=== PATIENT | female | born 1935 | race Caucasian/White ===

== ENCOUNTER → 2018-11-03 | Outpatient (CLI) | payer MEDICARE | END | disposition home or self-care (01) | LOC: RAH 10:25 | PROVIDERS: ATTEND Internal Medicine | DX: N28.1 Cyst of kidney, acquired (principal); R11.0 Nausea | CPT/HCPCS: 76700 ==

== ENCOUNTER 2019-05-13 08:56 | Emergency (ER) | payer MEDICARE ==
[~2019-05-13] VITALS: Ht 165.1 cm; Wt 52.2 kg
[2019-05-13 09:30] LABS: BASOPHILS % (AUTO) 0.3 % (0.0-5.0); EOSINOPHILS % (AUTO) 0.1 % (0.0-8.0); HEMATOCRIT 43.7 % (36-48); LYMPHOCYTES % (AUTO) 10.7 % (21.0-51.0); MEAN CORPUSCULAR HEMOGLOBIN 33.5 pg (27.0-33.0); MEAN CORPUSCULAR HGB CONC 33.5 g/dL (32.0-36.0); MEAN CORPUSCULAR VOLUME 99.9 fL (79-99); NEUTROPHILS % (AUTO) 80.9 % (40.0-77.0); PLATELET COUNT (AUTO) 208 K/uL (130-400); RED BLOOD CELL COUNT(AUTO) 4.38 MIL/uL (4.00-5.50); WHITE BLOOD COUNT (AUTO) 15.4 K/uL (4.8-10.8)
[2019-05-13] MEDS ORDERED: DEXAMETHASONE SOD PHOSPHATE 10MG/ML 1ML VIAL ONE (09:32)
[2019-05-13 09:38] LABS: CREATININE 0.8 mg/dL (0.5-1.5)
[2019-05-13 09:43] LABS: BILIRUBIN,TOTAL 1.2 mg/dL (0.2-1.0); TOTAL PROTEIN, SERUM 8.1 g/dL (6.0-8.3)
[2019-05-13] MEDS ORDERED: VANCOMYCIN 1GM+NS 250ML 250 ML IV SCH (09:45)
[2019-05-13] MEDS ORDERED: VANCOMYCIN 1GM+NS 250ML 250 ML IV ONE (09:49)
== END 2019-05-13 12:54 | disposition home or self-care (01) ==
LOC: EDH 08:56
DX: L03.113 Cellulitis of right upper limb (principal); I10 Essential (primary) hypertension; E03.9 Hypothyroidism, unspecified; Z88.0 Allergy status to penicillin; Z88.6 Allergy status to analgesic agent; Z88.7 Allergy status to serum and vaccine; Z87.891 Personal history of nicotine dependence
CPT/HCPCS: 36415; 80053; 85025; 96365; 96366; 96375; 99285; J1100; J3370

== ENCOUNTER → 2020-05-08 | Outpatient (CLI) | payer MEDICARE | END | disposition home or self-care (01) | LOC: RAH 14:26 | PROVIDERS: ATTEND Nurse Practitioner Adult Health | DX: J43.8 Other emphysema (principal); M47.815 Spondylosis without myelopathy or radiculopathy, thoracolumbar region; M41.85 Other forms of scoliosis, thoracolumbar region | CPT/HCPCS: 71046 ==

== ENCOUNTER 2025-09-13 11:41 | Inpatient (IN) | payer MEDICARE ==
[~2025-09-13] VITALS: Ht 165.1 cm; Wt 54.4 kg
--- NOTE | 2025-09-13 12:46 | NUR ---
REPORT RECEIVED FROM BEN RN AND REAL ESTATE REPRESENTATIVE AT BEDSIDE. PATIENT CARE ASSUMED AT THIS TIME.
--- NOTE | 2025-09-13 12:58 | NUR ---
PATIENT TRANSPORTED TO CT BY [facility].
[2025-09-13 13:12] LABS: APPEARANCE,URINE CLEAR (CLEAR); GLUCOSE, URINE (UA) NEGATIVE (NEGATIVE); LEUKOCYTE ESTERASE ,URINE NEGATIVE Leu/uL (NEGATIVE); NITRATE,URINE NEGATIVE (NEGATIVE); OCCULT BLOOD,URINE NEGATIVE (NEGATIVE)
[2025-09-13 13:15] LABS: ADD UA MICROSCOPIC NO
--- NOTE | 2025-09-13 13:15 | NUR ---
PATIENT RETURNED FROM CT SCAN. 2 FAMILY MEMBERS AT BEDSIDE.
[2025-09-13] MEDS: LISINOPRIL 20 MG TABLET PO ONE (14:10)
--- NOTE | 2025-09-13 14:20 | HMCIMG ---
EXAM: CT LUMBAR SPINE WITHOUT INTRAVENOUS CONTRAST Technique: Helical computed tomography of the lumbar spine was performed with axial images and multiplanar reformations; radiation dose reduction techniques were applied consistent with uv-siy-rl-reasonably-achievable principles. Dose metrics: CTDIvol 13.30 mGy; DLP 451.70 mGy???cm. Comparison: None. Contrast: No intravenous contrast administered. Clinical Information: Back pain. Findings: Lumbar spine: Vertebral body heights are maintained without acute fracture or destructive osseous lesion; mild levoscoliosis is present; multilevel anterior osteophytes are noted; intervertebral disc spaces are reduced at multiple levels; posterior elements (facets, laminae, pedicles) are intact without malalignment; vacuum phenomenon is present at L2???3 and L3???4; diffuse disc bulges at L1???2, L2???3, L3???4, L4???5, and L5???S1 with severe bilateral neural foraminal stenosis at each level; no central canal stenosis is identified on computed tomography; multilevel facet joint arthropathy is present. Sacroiliac joints: Alignment is normal without erosions or ankylosis. Paraspinal soft tissues and retroperitoneum: Moderate aortic atherosclerotic calcifications; paraspinal muscles (psoas and erector spinae) are unremarkable. Bowel: Stool burden consistent with constipation in the imaged colon. Impression: * Multilevel degenerative changes of the lumbar spine with diffuse disc bulges and severe bilateral neural foraminal stenosis from L1???2 through L5???S1; no central canal stenosis identified on computed tomography; vacuum phenomenon at L2???3 and L3???4; multilevel facet arthropathy. Correlate with radicular symptoms; lumbar spine magnetic resonance imaging may be considered for nerve root evaluation if clinically indicated. * Mild levoscoliosis. * No acute fracture or traumatic malalignment. * Moderate aortic atherosclerotic calcifications. * Stool burden compatible with constipation in the imaged colon. /[place]
--- NOTE | 2025-09-13 14:23 | NUR ---
FAMILY MEMBERS AT BEDSIDE DENY RECENT FALLS. THEY EXPLAIN THAT BRUISES ON BILATERAL KNEES ARE FROM PATIENT BUMPING HERSELF SHE GET INTO AND OUT OF BED.
--- NOTE | 2025-09-13 14:32 | ERN ---
General Chief Complaint: Back Pain or Injury Stated Complaint: BACK PAIN Time Seen by MD: 11:50 Source: patient History of Present Illness Initial Comments Patient is a an 89-year-old female coming in complaining of back pain. Patient was recently seen at the urgent care for back pain. X-ray did not disclose acute findings. Per family members they were not satisfied with the outcome and the diagnosis so wanted to come in to be evaluated in the ER. Patient has been having back pain for a couple of days. Allergies: Coded Allergies: Penicillins (Verified Allergy, Unknown, 05/13/19) meperidine (Verified Allergy, Unknown, 05/13/19) tetanus and diphtheria toxoids (Verified Allergy, Unknown, 05/13/19) Past Medical History Past Medical History: Hypertension, Other Medical History Other: BLIND Past Surgical History: Unknown ROS Dictation CONSTITUTIONAL: No chills, no fever, no weakness, no diaphoresis, no malaise. HEAD/FACE: No signs of trauma. EENT: No eye pain, no blurred vision, no tearing, no double vision, no ear pain, no ear discharge, no nose pain, no nasal congestion, no throat pain, no throat swelling, no mouth pain. RESPIRATORY: No cough, no orthopnea, no SOB, no stridor, no wheezing. CARDIOVASCULAR: No chest pain, no edema, no palpitations, no syncope. GASTROINTESTINAL/ABDOMINAL: No abdominal pain, no constipation, no diarrhea, no nausea, no vomiting. GENITOURINARY: No abnormal discharge, no dysuria, no frequent urination, no hematuria. No complaints of pain in the genitals. MUSCULOSKELETAL: back pain, no gout, no joint pain, no joint swelling, no muscle pain, no muscle stiffness, no neck pain. INTEGUMENTARY: No change in color, no change in hair/nails, no dryness, no lesion, no lumps, no rash. NEUROLOGICAL/PSYCH: No anxiety, not depressed, no emotional problem, no headache, no numbness, no pre-existing deficit, no history of seizures, no tremors, no weakness. HEMATOLOGIC/LYMPHATIC: Not anemic, no history of blood clots, no apparent bleeding, no bruising, glands not swollen. All Systems Negative, Except as Noted. Physical Exam Physical Exam Dictation VITAL SIGNS: Reviewed. GENERAL APPEARANCE: Alert, oriented x3, no acute distress, obese. HEAD AND FACE: Non-traumatic. EYES: PERRL, pink conjunctivas, eyelid no trauma, anterior chamber clear. EARS: Pinnas intact and no signs of trauma or erythema. Ear canals clear and no discharge. TMs no erythema. NOSE: No discharge, no bleeding. OROPHARYNX: Mouth normal, teeth no caries, tongue pink. Pharynx clear, no erythema. Tonsils no exudates, no abscesses noted. Mucous membrane moist. NECK: Supple, non-tender, no thyromegaly, no masses, no JVD, no bruits. BREAST: Deferred. CHEST: No tenderness, no crepitus, no paradoxical movement, no retractions. LUNGS: Clear, well-ventilated, symmetric, no rales, no wheezing, no rhonchi, no stridor, good breath sounds bilaterally. HEART: Regular rate, regular rhythm, no murmur, no gallops. VASCULAR: No peripheral edema. ABDOMEN: Soft, positive bowel sounds, nondistended, no guarding, nontender, no rebound, no masses no hepatomegaly, no splenomegaly, no Valero's sign, no h ernias. RECTAL: Deferred. GENITAL: Deferred. NEUROLOGICAL: Normal speech, gross motor function intact, gross sensory functi on intact. MUSCULOSKELETAL: Neck nontender, full range of motion, back nontender, full range of motion. EXTREMITIES: Nontender, full range of motion. Back pain on palpation, pain on flexion and extension SKIN: Color pink, dry, no turgor, no rash, no lacerations, no abrasions, no contusions. LYMPHATICS: Deferred. Results Laboratory and Microbiology Lab and Micro Result Laboratory Tests Test 09/13/25 12:57 09/13/25 14:36 Urine Color LIGHT-YELLOW (YELLOW) Urine Appearance CLEAR (CLEAR) Urine pH 6.0 (5.0-8.0) Urine Specific [place] 1.012 (1.001-1.031) Urine Protein NEGATIVE mg/dL (NEGATIVE) Urine Glucose (UA) NEGATIVE mg/dL (NEGATIVE) Urine Ketones NEGATIVE mg/dL (NEGATIVE) Urine Occult Blood NEGATIVE (NEGATIVE) Urine Nitrate NEGATIVE (NEGATIVE) Urine Bilirubin NEGATIVE mg/dL (NEGATIVE) Urine Urobilinogen 0.2 mg/dL (0.2-1.0) Urine Leukocyte Esterase NEGATIVE Harish/uL White Blood Count 7.4 K/uL (4.8-10.8) Red Blood Count 3.83 MIL/uL (4.00-5.50) L Hemoglobin 12.2 g/dL (12.0-16.0) Hematocrit 37.6 % (36-48) Mean Corpuscular Volume 98.2 fL (79-99) Mean Corpuscular Hemoglobin 31.9 pg (27.0-33.0) Mean Corpuscular Hemoglobin Concent 32.4 g/dL (32.0-36.0) Red Cell Distribution Width 12.6 % (11.0-15.5) Platelet Count 288 K/uL (130-400) Mean Platelet Volume 9.4 fL (7.5-10.5) Immature Granulocyte % (Auto) 0.5 % (0-1) Neutrophils (%) (Auto) 67.7 % (40.0-77.0) Lymphocytes (%) (Auto) 22.4 % (21.0-51.0) Monocytes (%) (Auto) 7.4 % (3.0-13.0) Eosinophils (%) (Auto) 1.3 % (0.0-8.0) Basophils (%) (Auto) 0.7 % (0.0-5.0) Neutrophils # (Auto) 5.0 K/uL (1.8-7.7) Lymphocytes # (Auto) 1.7 K/uL (1.0-4.8) Monocytes # (Auto) 0.6 K/uL (0.1-1.0) Eosinophils # (Auto) 0.10 K/uL (0.00-0.70) Basophils # (Auto) 0.05 K/uL (0.00-0.20) Absolute Immature Granulocyte (auto 0.04 K/uL (0-1) Nucleated Red Blood Cells 0.0 % (0.0-0.19) Sodium Level 142 mmol/L (136-145) Potassium Level 3.9 mmol/L (3.5-5.1) Chloride Level 107 mmol/L (101-111) Carbon Dioxide Level 27 mmol/L (21-32) Blood Urea Nitrogen 20 mg/dL (7-18) H Creatinine 0.7 mg/dL (0.5-1.0) Glomerular Filtration Rate Calc 83 mL/min (>90) Random Glucose 102 mg/dL (70-105) Total Calcium 9.3 mg/dL (8.5-10.1) Labs Reviewed?: Yes EKG/XRAY/US/CT/MRI CT Scan Comment IMAGING REPORT Signed PATIENT: WALT DAVILA MR#: [id number] : 1935 SEX: F AGE: 89 LOCATION: ED ORDER [id number] STATUS: REG ER REPORT#: [id number] SERVICE 1208 REASON: back pain ORDERING PHYSICIAN: JOEL GALAVIZ MD PROCEDURE: L SPIN WO - CT LUMBAR SPINE W/O CONTRAST EXAM: CT LUMBAR SPINE WITHOUT INTRAVENOUS CONTRAST Technique: Helical computed tomography of the lumbar spine was performed with axial images and multiplanar reformations; radiation dose reduction techniques were applied consistent with be-sdt-tc-reasonably-achievable principles. Dose metrics: CTDIvol 13.30 mGy; DLP 451.70 mGy???cm. Comparison: None. Contrast: No intravenous contrast administered. Clinical Information: Back pain. Findings: Lumbar spine: Vertebral body heights are maintained without acute fracture or destructive osseous lesion; mild levoscoliosis is present; multilevel anterior osteophytes are noted; intervertebral disc spaces are reduced at multiple levels; posterior elements (facets, laminae, pedicles) are intact without malalignment; vacuum phenomenon is present at L2???3 and L3???4; diffuse disc bulges at L1???2, L2???3, L3???4, L4???5, and L5???S1 with severe bilateral neural foraminal stenosis at each level; no central canal stenosis is identified on computed tomography; multilevel facet joint arthropathy is present. Sacroiliac joints: Alignment is normal without erosions or ankylosis. Paraspinal soft tissues and retroperitoneum: Moderate aortic atherosclerotic calcifications; paraspinal muscles (psoas and erector spinae) are unremarkable. Bowel: Stool burden consistent with constipation in the imaged colon. Impression: * Multilevel degenerative changes of the lumbar spine with diffuse disc bulges and severe bilateral neural foraminal stenosis from L1???2 through L5???S1; no central canal stenosis identified on computed tomography; vacuum phenomenon at L2???3 and L3???4; multilevel facet arthropathy. Correlate with radicular symptoms; lumbar spine magnetic resonance imaging may be considered for nerve root evaluation if clinically indicated. * Mild levoscoliosis. * No acute fracture or traumatic malalignment. * Moderate aortic atherosclerotic calcifications. * Stool burden compatible with constipation in the imaged colon. /[place] DICTATED BY: MALINDA ABBOTT MD DATE: 09/13/251518 ELECTRONICALLY SIGNED BY: MALINDA ABBOTT MD DATE: 09/13/251518 [facility] MDM: Differential diagnosis: Failure to thrive, constipation, Rationale: Tests considered and ordered secondary to shared decision making include: labs, ECG and radiology Previous outside records reviewed: Old ER visits. Risk of complication and/or morbidity or mortality of patient management: None Medications-Per medication reconciliation Need for hospitalization: Patient does meet criteria for hospitalization. Need for emergency major/minor surgery: No There are no social concerns with this patient. Prescription drug management Prescriptions will include symptomatic care Patient's prior external medical records from other ER visits were reviewed by me as indicated. Prior testing and results from previous visits were reviewed. Prior tests were taken into account with medical decision making and resource utilization, independent historian/historians were used to obtain complete medical history. I independently interpreted the test that were performed, results were reviewed by me and considered findings on radiology if ordered. Medical management and examination interpretation discussions were had by me with other qualified healthcare professionals as indicated for the patient's care. He will be admitted under the care of hospitalist group ED Course Orders Procedure Category Date Status Time Ct Lumbar Spine W/O CT 09/13/25 Resulted Contrast 12:08 Urinalysis Profile LAB 09/13/25 Complete 12:56 Lisinopril 20mg PHA 09/13/25 Complete (Prinivil 20mg) 14:00 Cbc With Differential LAB 09/13/25 Complete 14:25 Basic Metabolic Panel LAB 09/13/25 Complete 14:25 Urinalysis LAB 09/13/25 Logged W/Microscopic 14:25 Current Medications Medications (Trade) Dose Ordered Sig/Mayur Route PRN Reason Start Time Stop Time Status Last Admin Dose Admin Lisinopril (Prinivil 20mg) 20 mg ONCE ONCE PO 09/13/25 14:00 09/13/25 14:01 DC 09/13/25 14:10 Vital Signs Date Time Temp Pulse Resp B/P (MAP) Pulse Ox O2 Delivery O2 Flow Rate FiO2 09/13/25 14:44 98.1 74 16 168/74 98 Room Air* 0 21 09/13/25 14:10 98.1 72 16 180/94 97 Room Air* 0 09/13/25 13:00 98.1 64 16 167/92 96 Room Air* 0 09/13/25 11:43 98.6 65 18 147/86 96 Room Air 0 DX & DISP Disposition: Inpatient Decision to Admit Time: 15:05 Departure Impression: Primary Impression: Failure to thrive Additional Impressions: Constipation, Chronic back pain Condition: Stable Referrals: SELF,REFERRAL (PCP) JOEL GALAVIZ MD Sep 13, 2025 14:32
[2025-09-13 14:45] LABS: IMMATURE GRANULOCYTE ABSOLUTE 0.04 K/uL (0-1); NUCLEATED RED BLOOD CELLS 0.0 % (0.0-0.19); PLATELET COUNT (AUTO) 288 K/uL (130-400); RED BLOOD CELL COUNT(AUTO) 3.83 MIL/uL (4.00-5.50); RED CELL DISTRIBUTION WIDTH 12.6 % (11.0-15.5); WHITE BLOOD COUNT (AUTO) 7.4 K/uL (4.8-10.8)
[2025-09-13 14:51] LABS: CREATININE 0.7 mg/dL (0.5-1.0); GLOMERULAR FILTR. RATE CALC 83.0 mL/min (>90); GLUCOSE,RANDOM 102.0 mg/dL (70-105); SODIUM SERUM 142.0 mmol/L (136-145); UREA NITROGEN, BLOOD 20.0 mg/dL (7-18)
[2025-09-13] MEDS ORDERED: LISI20TA24 PO (15:05)
[2025-09-13] MEDS ORDERED: LEVO100T12 PO (15:06)
[2025-09-13] MEDS ORDERED: MAGNESIUM 2GM PREMIX 50ML 50 ML IV PRN (15:30)
[2025-09-13] MEDS ORDERED: PoTASSium chl 10% ELIXIR 20MEQ 20 MEQ/15 ML UDCUP PO PRN (15:30)
[2025-09-13] MEDS: 0.9%NACL 1000ML 1,000 ML IV SCH (15:44)
--- NOTE | 2025-09-13 17:03 | HP ---
[facility] HISTORY AND PHYSICAL Date of Service: Sep 13, 2025 Time of Service: 17:03 HISTORY OF PRESENT ILLNESS: 89 Year old female with past medical history of hypertension, hypothyroidism, eye blindness who presented to the hospital secondary to lower back pain. The patient is a poor historian. She does follow conversations. No family is present at bedside history is obtained from ER physician, chart review and from patient. Patient was noted to have lower back pain for the past three days. She went to freestanding ER where she underwent a x-ray. She was given prescription for baclofen and recommended to follow outpatient with the primary care provider. She did not fill her medications yet. She still had persistent lower back pain. She denies any changes in her urination and denies any abdominal pain, chest pain, shortness of breath. She lives alone at home and does not use a walker or a cane. Per does daughter she does have a provider who helps her at home. Denied any fever, chills, shortness of breath. Patient underwent CT lumbar spine which showed multilevel degenerative changes of the lumbar spine with diffuse disc bulges and severe bilateral neural foramina stenosis from L1 through L5, S1. There was no central canal stenosis are identified on CT. REVIEW OF SYSTEMS CONSTITUTIONAL: Denies fevers, chills, or night sweats. No unintentional weight loss reported. NEUROLOGICAL: Denies headache, amaurosis fugax, motor weakness, sensory deficit, vertigo/spinning sensation, gait abnormalities, or tremors. ENT: No hearing loss, otalgia, otorrhea, rhinitis, rhinorrhea, hoarseness, or sore throat. CARDIOVASCULAR: Denies any exertional angina, dyspnea on exertion, orthopnea, paroxysmal nocturnal dyspnea, palpitations, life-threatening arrhythmias, claudication. PULMONARY: Denies any shortness of breath, cough, phlegm/sputum, hemoptysis, pleuritic chest pain. SLEEP: Denies morning headaches, daytime somnolence or napping. Denies difficulty falling asleep, staying asleep, waking from sleep. Denies knowledge of snoring. GASTROINTESTINAL: Denies any type of dysphagia to either liquids or solids. Denies nausea, vomiting, pyrosis, early satiety, abdominal pain, diarrhea, constipation, or changes in stool consistency or caliber. Denies coffee-ground emesis, hematemesis, hematochezia, or melanotic stools. GENITOURINARY: Denies frequency, urgency, nocturia, hematuria or incontinence (Storage/Irritative symptoms.) Low urinary stream, straining to void, urinary intermittency or hesitancy, splitting of the voiding stream, terminal dribbling. ENDOCRINOLOGIC: Denies polyuria, polydipsia, polyphagia or heat/cold intolerances. HEMATOLOGIC: Denies thrombophilia/previous clots, or coagulopathy/bleeding disorders. ONCOLOGIC: Denies personal history of malignancy. DERMATOLOGIC: Denies rashes or pruritus. PSYCHIATRIC: Denies any suicidal or homicidal ideation. Denies hallucinations. Musculoskeletal: Positive for lower back pain PAST MEDICAL HISTORY: Hypertension, hypothyroidism, eye blindness PAST SURGICAL HISTORY: Denied any previous surgical history PAST SOCIAL HISTORY: Denied any smoking, alcohol, drug use. Patient has a provider who helps her with care at home FAMILY HISTORY: Denied any pertinent family history Coded Allergies: Penicillins (Verified Allergy, Unknown, 05/13/19) meperidine (Verified Allergy, Unknown, 05/13/19) tetanus and diphtheria toxoids (Verified Allergy, Unknown, 05/13/19) PHYSICAL EXAM GENERAL APPEARANCE: The patient is awake, alert, and oriented, in no acute cardiopulmonary distress. NEUROLOGICAL: Cranial nerves II-XII grossly intact. Motor is 5/5 in bilateral upper and lower extremities proximal to distal. No sensory deficits. HEENT: Face is symmetric. Pupils are equal and reactive. Extraocular movements are intact. NECK: Supple. No JVD. No thyromegaly. No submental, submandibular, pre- /postauricular, occipital or supraclavicular lymphadenopathy. CHEST: Normal chest expansion. No Telemetry. LUNGS: Absence of any rales, rhonchi or any wheezing. CARDIOVASCULAR: Regular. S1 and S2 normal. No appreciable rubs, murmurs or gallops. ABDOMEN: Soft, nontender, and nondistended. There is no rebound, voluntary guarding, or rigidity. : Deferred. No [place]. EXTREMITIES: Non-edematous and not cyanotic. No clubbing. Good capillary refill. Tenderness to palpation in the lower back SKIN: No skin breakdown. Vital Sign (Last 24 Hours) 09/13/25 16:46 Temp 98.1 Pulse 60 Resp 16 B/P (MAP) 148/71 Pulse Ox 96 O2 Delivery Room Air* O2 Flow Rate 0 FiO2 21 LABS: Laboratory: Test 09/13/25 14:36 09/13/25 12:57 Range/Units White Blood Count 7.4 4.8-10.8 K/uL Red Blood Count 3.83 L 4.00-5.50 MIL/uL Hemoglobin 12.2 12.0-16.0 g/dL Hematocrit 37.6 36-48 % Mean Corpuscular Volume 98.2 79-99 fL Mean Corpuscular Hemoglobin 31.9 27.0-33.0 pg Mean Corpuscular Hemoglobin Concent 32.4 32.0-36.0 g/dL Red Cell Distribution Width 12.6 11.0-15.5 % Platelet Count 288 130-400 K/uL Mean Platelet Volume 9.4 7.5-10.5 fL Immature Granulocyte % (Auto) 0.5 0-1 % Neutrophils (%) (Auto) 67.7 40.0-77.0 % Lymphocytes (%) (Auto) 22.4 21.0-51.0 % Monocytes (%) (Auto) 7.4 3.0-13.0 % Eosinophils (%) (Auto) 1.3 0.0-8.0 % Basophils (%) (Auto) 0.7 0.0-5.0 % Neutrophils # (Auto) 5.0 1.8-7.7 K/uL Lymphocytes # (Auto) 1.7 1.0-4.8 K/uL Monocytes # (Auto) 0.6 0.1-1.0 K/uL Eosinophils # (Auto) 0.10 0.00-0.70 K/uL Basophils # (Auto) 0.05 0.00-0.20 K/uL Absolute Immature Granulocyte (auto 0.04 0-1 K/uL Nucleated Red Blood Cells 0.0 0.0-0.19 % Sodium Level 142 136-145 mmol/L Potassium Level 3.9 3.5-5.1 mmol/L Chloride Level 107 101-111 mmol/L Carbon Dioxide Level 27 21-32 mmol/L Blood Urea Nitrogen 20 H 7-18 mg/dL Creatinine 0.7 0.5-1.0 mg/dL Glomerular Filtration Rate Calc 83 >90 mL/min Random Glucose 102 70-105 mg/dL Hemoglobin A1c 6.0 4.0-6.0 % Estimated Average Glucose (eAG) 126 70-126 mg/dL Total Calcium 9.3 8.5-10.1 mg/dL Thyroid Stimulating Hormone (TSH) 0.06 L 0.36-3.74 uIU/mL Urine Color LIGHT-YELLOW YELLOW Urine Appearance CLEAR CLEAR Urine pH 6.0 5.0-8.0 Urine Specific [place] 1.012 1.001-1.031 Urine Protein NEGATIVE NEGATIVE mg/dL Urine Glucose (UA) NEGATIVE NEGATIVE mg/dL Urine Ketones NEGATIVE NEGATIVE mg/dL Urine Occult Blood NEGATIVE NEGATIVE Urine Nitrate NEGATIVE NEGATIVE Urine Bilirubin NEGATIVE NEGATIVE mg/dL Urine Urobilinogen 0.2 0.2-1.0 mg/dL Urine Leukocyte Esterase NEGATIVE NEGATIVE Harish/uL Current Medications Medications (Trade) Dose Ordered Sig/Mayur Route PRN Reason Start Time Stop Time Status Last Admin Dose Admin Acetaminophen (TYLenol 500MG TAB) 500 mg Q6H PRN PO MILD PAIN (1-3) 09/13/25 15:30 10/13/25 15:29 09/13/25 15:44 500 MG Famotidine (Pepcid 20mg Vial) 20 mg Q24H IV 09/13/25 21:00 10/13/25 20:59 Hydralazine HCl (APRESOLine 20MG INJ) 10 mg Q6H PRN IV ADMINISTER FOR SBP > 180 09/13/25 15:30 10/13/25 15:29 Levothyroxine Sodium (SYNTHroid 100MCG TAB) 100 mcg SYN PO 09/14/25 06:30 10/14/25 06:29 Lisinopril (Prinivil 20mg) 20 mg DAILY PO 09/14/25 09:00 10/14/25 08:59 Magnesium Sulfate 50 ml @ 0 mls/hr PROTOCOL PRN IV HYPOMAGNESEMIA 09/13/25 15:30 10/13/25 15:29 Potassium Chloride 100 ml @ 100 mls/hr AD PRN IV POTASSIUM PROTOCOL 09/13/25 15:30 10/13/25 15:29 Potassium Chloride (K-Dur/Klor-Con 20meq) 20 meq AD PRN PO POTASSIUM PROTOCOL 09/13/25 15:30 10/13/25 15:29 Potassium Chloride (KCl 10% Elixir 20meq/15ml) 20 meq AD PRN PO POTASSIUM PROTOCOL 09/13/25 15:30 10/13/25 15:29 Sodium Chloride 1,000 ml @ 75 mls/hr [id number] IV 09/13/25 15:30 10/13/25 15:29 09/13/25 15:44 75 MLS/HR DIAGNOSTICS / RADIOLOGY: CT lumbar spine was reviewed ASSESSMENT: Persistent lower back pain POA 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 Advanced age POA Eye blindness Hypertension Hypothyroidism Debility Constipation PLAN: - patient to be admitted to medical-surgical unit -in reference to lower back pain. We will obtain a MRI of the lower back for further evaluation. Obtain a PT evaluation. Request case management consultation. We will consider neurosurgical consultation depending on MRI results. -patient to be started on lactulose PRN before constipation -obtain home medications which will be reconciled once available -check TSH, hemoglobin A1c -further orders per hospitalization course. Advanced Care Planning Which of the following were discussed: Hospice care: Yes __ No _x_ Therapeutic options: Yes __ No __ Advance directives: Yes __ No __ Other discussions: Discussed with who?: patient and daughter (Patient, family or surrogates) Voluntary nature of this service was explained to the patient? Yes _x_ No __ Amount of time spent: 25 minutes DELON Branham MD, MD Sep 13, 2025 17:03
[2025-09-13] MEDS ORDERED: DORZ10DR10 OP (17:05)
[2025-09-13] MEDS ORDERED: OMEP40CA21 PO (17:05)
[2025-09-13] MEDS ORDERED: BACL10TA PO (17:05)
[2025-09-13] MEDS ORDERED: LATA2.5D7 OP (17:05)
[2025-09-13] MEDS ORDERED: FLUT1BLS3 IH (17:05)
[2025-09-13] MEDS ORDERED: LOVA20TA3 PO (17:05)
--- NOTE | 2025-09-13 17:05 | NUR ---
HOME MEDICATIONS RECONCILLED.
[2025-09-13] MEDS ORDERED: LACTULOSE 20 GM/30 ML UDCUP PO PRN (17:30)
[2025-09-13] MEDS: FAMOTIDINE 20MG VIAL IV SCH (20:31)
[2025-09-13 22:35] VITALS: BP 166/81; PULSE 61; RESP 21; TEMP 97.9
--- NOTE | 2025-09-13 22:45 | NUR ---
admit note admit to room 416 via stretcher from er, no family with patient, patient awake, alert, ox1 only, unable to give medical history or family history, ivf infusing well to left forearm 20 gauge catheter, placed on fall and aspiration precautions, bed alarm on , tele number 6 pack applied per order
[2025-09-14] VITALS: BP 111/67; PULSE 67; RESP 17; TEMP 98.2
[2025-09-14 04:00] VITALS: BP 182/97; PULSE 68; RESP 16; TEMP 98.1
[2025-09-14 05:12] LABS: IMMATURE GRANULOCYTE ABSOLUTE 0.03 K/uL (0-1); NUCLEATED RED BLOOD CELLS 0.0 % (0.0-0.19); PLATELET COUNT (AUTO) 316 K/uL (130-400); RED BLOOD CELL COUNT(AUTO) 3.84 MIL/uL (4.00-5.50); RED CELL DISTRIBUTION WIDTH 12.5 % (11.0-15.5); WHITE BLOOD COUNT (AUTO) 6.6 K/uL (4.8-10.8)
[2025-09-14 05:31] LABS: CREATININE 0.6 mg/dL (0.5-1.0); GLOMERULAR FILTR. RATE CALC 86.0 mL/min (>90); GLUCOSE,RANDOM 94.0 mg/dL (70-105); SODIUM SERUM 141.0 mmol/L (136-145); UREA NITROGEN, BLOOD 16.0 mg/dL (7-18)
[2025-09-14 08:00] VITALS: BP 163/97; PULSE 83; RESP 20; TEMP 97.8; O2SAT 90
--- NOTE | 2025-09-14 11:00 | NUR ---
CT SCAN RESULTS REVEAL MULTILEVEL DJD LUMBAR REGION WITH DISC BULGING. MRI HAS BEEN ORDERED WILL AWAIT RESULTS AND WHETHER NEUROLOGY WILL BE CONSULTED. PT TEAM TO FOLLOW.
[2025-09-14] MEDS: LISINOPRIL 20 MG TABLET PO SCH (11:04)
--- NOTE | 2025-09-14 11:48 | PN ---
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 The patient is a poor historian. She does follow conversations. No family is present at bedside history is obtained from ER physician, chart review and from patient. Patient was noted to have lower back pain for the past three days. She went to [facility] where she underwent a x-ray. She was given prescription for baclofen and recommended to follow outpatient with the primary care provider. She did not fill her medications yet. She still had persistent lower back pain. She denies any changes in her urination and denies any abdominal pain, chest pain, shortness of breath. She lives alone at home and does not use a walker or a cane. Per does daughter she does have a provider who helps her at home. Denied any fever, chills, shortness of breath. Patient underwent CT lumbar spine which showed multilevel degenerative changes of the lumbar spine with diffuse disc bulges and severe bilateral neural foramina stenosis from L1 through L5, S1. There was no central canal stenosis are identified on CT. SUBJECTIVE: 09/14/2025: Patient was a evaluated along with her family members present at the bedside this afternoon. Patient was very somnolent and was not a good historian. Patient admitted to having low back pain however could not give an intensity. Patient's daughter informed that her pain started on the of last week, which was excruciating, without any motor or sensory weakness, urinary symptoms. Initially patient was taken to urgent care where she was prescribed baclofen. Patient's daughter reported she never took the medication and came to the ER. CT scan showed multilevel degenerative changes of L-spine with diffuse disc bulges and bilateral neuroforaminal stenosis from L1 through L5, S1. MRI of lumbar spine is pending. Prior to this pain patient was able to ambulate with the help of a sitter who spends nearly 4 hours with her at home. Patient has been following up with Dr. Franz for macular degeneration and is legally blind. Home meds have been reconciled and case management is on board. We will follow up with the MRI results, neurosurgery recommendation and ordered physical therapy as tolerated. REVIEW OF SYSTEMS CONSTITUTIONAL: Denies fevers, chills, or night sweats. No unintentional weight loss reported. NEUROLOGICAL: Denies headache, motor weakness, sensory deficit, vertigo/spinning sensation, gait abnormalities, or tremors. ENT: No hearing loss, otalgia, otorrhea, rhinitis, rhinorrhea, hoarseness, or sore throat. CARDIOVASCULAR: Denies any exertional angina, dyspnea on exertion, orthopnea, paroxysmal nocturnal dyspnea, palpitations, life-threatening arrhythmias, claudication. PULMONARY: Denies any shortness of breath, cough, phlegm/sputum, hemoptysis, pleuritic chest pain. SLEEP: Denies morning headaches, daytime somnolence or napping. Denies difficulty falling asleep, staying asleep, waking from sleep. Denies knowledge of snoring. GASTROINTESTINAL: Denies any type of dysphagia to either liquids or solids. Denies nausea, vomiting, pyrosis, early satiety, abdominal pain, diarrhea, constipation, or changes in stool consistency or caliber. Denies coffee-ground emesis, hematemesis, hematochezia, or melanotic stools. GENITOURINARY: Denies frequency, urgency, nocturia, hematuria or incontinence (Storage/Irritative symptoms.) Low urinary stream, straining to void, urinary intermittency or hesitancy, splitting of the voiding stream, terminal dribbling. ENDOCRINOLOGIC: Denies polyuria, polydipsia, polyphagia or heat/cold intolerances. HEMATOLOGIC: Denies thrombophilia/previous clots, or coagulopathy/bleeding disorders. ONCOLOGIC: Denies personal history of malignancy. DERMATOLOGIC: Admits to easy bruising PSYCHIATRIC: Denies any suicidal or homicidal ideation. Denies hallucinations. Musculoskeletal: Positive for lower back pain PHYSICAL EXAM GENERAL APPEARANCE: The patient is awake, alert, and oriented, in no acute cardiopulmonary distress. NEUROLOGICAL: Cranial nerves II-XII grossly intact. Motor is 5/5 in bilateral upper and lower extremities proximal to distal. No sensory deficits. HEENT: Face is symmetric. Pupils are equal and reactive. Extraocular movements are intact. NECK: Supple. No JVD. No thyromegaly. No submental, submandibular, pre- /postauricular, occipital or supraclavicular lymphadenopathy. CHEST: Normal chest expansion. No Telemetry. LUNGS: Absence of any rales, rhonchi or any wheezing. CARDIOVASCULAR: Regular. S1 and S2 normal. No appreciable rubs, murmurs or gallops. ABDOMEN: Soft, nontender, and nondistended. There is no rebound, voluntary guarding, or rigidity. : Deferred. No [place] P[place]. EXTREMITIES: Non-edematous and not cyanotic. No clubbing. Good capillary refill. Tenderness to palpation in the lower back SKIN: No skin breakdown. Extensive bruise in the left lower leg from accidental trauma Vital Signs (last 8hr) Date Time Temp Pulse Resp B/P (MAP) Pulse Ox O2 Delivery O2 Flow Rate FiO2 09/14/25 08:00 97.9 83 20 163/97 90 Room Air 09/14/25 04:00 98.1 68 16 182/97 94 Room Air LABS: Laboratory: Test 09/14/25 10:56 09/14/25 04:50 09/13/25 14:36 09/13/25 12:57 Range/Units Ammonia < 10 L 11-32 umol/L White Blood Count 6.6 4.8-10.8 K/uL Red Blood Count 3.84 L 4.00-5.50 MIL/uL Hemoglobin 12.3 12.0-16.0 g/dL Hematocrit 36.9 36-48 % Mean Corpuscular Volume 96.1 79-99 fL Mean Corpuscular Hemoglobin 32.0 27.0-33.0 pg Mean Corpuscular Hemoglobin Concent 33.3 32.0-36.0 g/dL Red Cell Distribution Width 12.5 11.0-15.5 % Platelet Count 316 130-400 K/uL Mean Platelet Volume 9.6 7.5-10.5 fL Immature Granulocyte % (Auto) 0.5 0-1 % Neutrophils (%) (Auto) 63.1 40.0-77.0 % Lymphocytes (%) (Auto) 26.4 21.0-51.0 % Monocytes (%) (Auto) 8.2 3.0-13.0 % Eosinophils (%) (Auto) 1.2 0.0-8.0 % Basophils (%) (Auto) 0.6 0.0-5.0 % Neutrophils # (Auto) 4.2 1.8-7.7 K/uL Lymphocytes # (Auto) 1.7 1.0-4.8 K/uL Monocytes # (Auto) 0.5 0.1-1.0 K/uL Eosinophils # (Auto) 0.08 0.00-0.70 K/uL Basophils # (Auto) 0.04 0.00-0.20 K/uL Absolute Immature Granulocyte (auto 0.03 0-1 K/uL Nucleated Red Blood Cells 0.0 0.0-0.19 % Sodium Level 141 136-145 mmol/L Potassium Level 3.5 3.5-5.1 mmol/L Chloride Level 106 101-111 mmol/L Carbon Dioxide Level 26 21-32 mmol/L Blood Urea Nitrogen 16 7-18 mg/dL Creatinine 0.6 0.5-1.0 mg/dL Glomerular Filtration Rate Calc 86 >90 mL/min Random Glucose 94 70-105 mg/dL Total Calcium 8.6 8.5-10.1 mg/dL Hemoglobin A1c 6.0 4.0-6.0 % Estimated Average Glucose (eAG) 126 70-126 mg/dL Thyroid Stimulating Hormone (TSH) 0.06 L 0.36-3.74 uIU/mL Urine Color LIGHT-YELLOW YELLOW Urine Appearance CLEAR CLEAR Urine pH 6.0 5.0-8.0 Urine Specific [place] 1.012 1.001-1.031 Urine Protein NEGATIVE NEGATIVE mg/dL Urine Glucose (UA) NEGATIVE NEGATIVE mg/dL Urine Ketones NEGATIVE NEGATIVE mg/dL Urine Occult Blood NEGATIVE NEGATIVE Urine Nitrate NEGATIVE NEGATIVE Urine Bilirubin NEGATIVE NEGATIVE mg/dL Urine Urobilinogen 0.2 0.2-1.0 mg/dL Urine Leukocyte Esterase NEGATIVE NEGATIVE Harish/uL Current Medications Medications (Trade) Dose Ordered Sig/Mayur Route PRN Reason Start Time Stop Time Status Last Admin Dose Admin Acetaminophen (TYLenol 500MG TAB) 500 mg Q6H PRN PO MILD PAIN (1-3) 09/13/25 15:30 10/13/25 15:29 09/14/25 05:19 500 MG Famotidine (Pepcid 20mg Vial) 20 mg Q24H IV 09/13/25 21:00 10/13/25 20:59 09/13/25 20:31 20 MG Hydralazine HCl (APRESOLine 20MG INJ) 10 mg Q6H PRN IV ADMINISTER FOR SBP > 180 09/13/25 15:30 10/13/25 15:29 Lactulose (Constulose 20gm/ 30ml Udcup) 20 gm BID PRN PO CONSTIPATION 09/13/25 17:30 10/13/25 17:29 Levothyroxine Sodium (SYNTHroid 100MCG TAB) 100 mcg SYN PO 09/14/25 06:30 10/14/25 06:29 09/14/25 05:34 100 MCG Lisinopril (Prinivil 20mg) 20 mg DAILY PO 09/14/25 09:00 10/14/25 08:59 09/14/25 11:04 20 MG Magnesium Sulfate 50 ml @ 0 mls/hr PROTOCOL PRN IV HYPOMAGNESEMIA 09/13/25 15:30 10/13/25 15:29 Potassium Chloride 100 ml @ 100 mls/hr AD PRN IV POTASSIUM PROTOCOL 09/13/25 15:30 10/13/25 15:29 Potassium Chloride (K-Dur/Klor-Con 20meq) 20 meq AD PRN PO POTASSIUM PROTOCOL 09/13/25 15:30 10/13/25 15:29 Potassium Chloride (KCl 10% Elixir 20meq/15ml) 20 meq AD PRN PO POTASSIUM PROTOCOL 09/13/25 15:30 10/13/25 15:29 Sodium Chloride 1,000 ml @ 75 mls/hr [id number] IV 09/13/25 15:30 10/13/25 15:29 09/14/25 04:14 75 MLS/HR DIAGNOSTICS / RADIOLOGY: [ ] PATIENT: WALT DAVILA MR#: [id number] : 1935 SEX: F AGE: 89 LOCATION: [facility] ORDER 08 STATUS: REG ER REPORT#: [id number] SERVICE [id number] REASON: back pain ORDERING PHYSICIAN: JOEL GALAVIZ MD PROCEDURE: L SPIN WO - CT LUMBAR SPINE W/O CONTRAST EXAM: CT LUMBAR SPINE WITHOUT INTRAVENOUS CONTRAST Technique: Helical computed tomography of the lumbar spine was performed with axial images and multiplanar reformations; radiation dose reduction techniques were applied consistent with [id number] principles. Dose metrics: CTDIvol 13.30 mGy; DLP 451.70 mGy???cm. Comparison: None. Contrast: No intravenous contrast administered. Clinical Information: Back pain. Findings: Lumbar spine: Vertebral body heights are maintained without acute fracture or destructive osseous lesion; mild levoscoliosis is present; multilevel anterior osteophytes are noted; intervertebral disc spaces are reduced at multiple levels; posterior elements (facets, laminae, pedicles) are intact without malalignment; vacuum phenomenon is present at L2???3 and L3???4; diffuse disc bulges at L1???2, L2???3, L3???4, L4???5, and L5???S1 with severe bilateral neural foraminal stenosis at each level; no central canal stenosis is identified on computed tomography; multilevel facet joint arthropathy is present. Sacroiliac joints: Alignment is normal without erosions or ankylosis. Paraspinal soft tissues and retroperitoneum: Moderate aortic atherosclerotic calcifications; paraspinal muscles (psoas and erector spinae) are unremarkable. Bowel: Stool burden consistent with constipation in the imaged colon. Impression: * Multilevel degenerative changes of the lumbar spine with diffuse disc bulges and severe bilateral neural foraminal stenosis from L1???2 through L5???S1; no central canal stenosis identified on computed tomography; vacuum phenomenon at L2???3 and L3???4; multilevel facet arthropathy. Correlate with radicular symptoms; lumbar spine magnetic resonance imaging may be considered for nerve root evaluation if clinically indicated. * Mild levoscoliosis. * No acute fracture or traumatic malalignment. * Moderate aortic atherosclerotic calcifications. * Stool burden compatible with constipation in the imaged colon. 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 * Patient presented with severe back pain CT spine revealed bilateral neural foraminal stenosis from L1 through L5 and S1 * Negative for motor, sensory weakness or loss of bladder control * MRI of lumbar spine is pending * IV Tylenol 1000 mg q.6 the PRN ordered for pain * Physical therapy evaluation placed * We will consider neurosurgery evaluation after the imaging Hypothyroidism * Patient's TSH is 0.06 * Patient uses 100 mcg of levothyroxine at home * We will repeat TSH and and consider adjusting the dosage Continue GI soft diet Continue lisinopril 20 mg daily, atorvastatin 5 mg daily Continue lactulose 20 mg b.i.d. PRN for constipation Continue GI prophylaxis with famotidine and [facility] Nurse informed about patient being legally blind and need assistance with feeding. Repeat CBC, BMP in the morning ATTESTATION BY PHYSICIAN I have seen and examined the patient. I reviewed the documentation, medical decision making, and treatment plan as noted by the resident physician above. I agree with the findings and plan of care. IBIS ASHLEY MD, HARSHAVARDHA MD Sep 14, 2025 11:48
[2025-09-14 12:00] VITALS: BP 162/109; PULSE 74; RESP 20; TEMP 98
--- NOTE | 2025-09-14 14:00 | NUR ---
BEDSIDE SWALLOW EVAL COMPLETED. No s/s of aspiration. RECOMMENDATIONS: minced and moist solids, thin liquids and pills whole 1 per swallow or crushed as tolerated. COMPENSATORY STRATEGIES: 1. sit upright during oral intake 2. small bites/sips 3. slow oral intake 4. feeding assistance CRISIS MANAGER reviewed results and recommendations with patient and nurse. No family present at time of eval. CRISIS MANAGER educated patient on risks and consequences of aspiration. Speech therapy not warranted at this time. All questions answered. Addendum: 09/14/[address] [facility] Amended: Links added.
--- NOTE | 2025-09-14 15:06 | NUR ---
DCP:[facility] FIORE spoke with pt's daughter Cierra Venegas [phone] to gather information. Pt lives alone in her home and is legally blind. Daughter states that she has attempted to get her help from numerous places however pt keeps on denying services. Pt does have a provider that goes to the home 4hrs a day to assist with ADLs, home management, and meals. PCP is Maye Torres. Daughter states that she would prefer for the pt to go to [facility].
[2025-09-14] MEDS: PoTASSium chloRIDE 20MEQ ER 20 MEQ ERTAB PO PRN (15:13)
[2025-09-14 16:00] VITALS: BP 157/106; PULSE 77; RESP 20; TEMP 98
[2025-09-14 20:00] VITALS: BP 156/99; PULSE 80; RESP 18; TEMP 97.5
[2025-09-14] MEDS: DORZOLAMIDE HCL/TIMOLOL MALEAT DROPS 10 ML BOTTLE OP SCH (21:00)
[2025-09-14] MEDS: LATANOPROST 2.5 ML DROPS OP SCH (21:00)
[2025-09-14] MEDS ORDERED: COMPOUND IV REFRIGERATED 1 EACH IVSOLN MISC PRN (21:30)
--- NOTE | 2025-09-14 22:07 | HMCIMG ---
EXAM: MR Lumbar Spine without Intravenous Contrast. CLINICAL HISTORY: Lower back pain. TECHNIQUE: Magnetic resonance images of the lumbar spine without intravenous contrast in multiple planes. CONTRAST: Without. COMPARISON: Prior CT scan of the lumbar spine dated 09/14/2025. FINDINGS: VERTEBRAE: Redemonstrated dextroscoliosis of the lumbar spine with convexity toward the right. The lumbar lordosis is reduced, which may be due to muscle spasm. Anterior and posterior marginal osteophytes. Modic type II endplate changes at multiple levels. Schmorl's nodes are visualized at multiple levels. There is minimal retrolisthesis of L5 over S1, without spondylolysis. Bone marrow edema is present within the S2 vertebral body which is correspondingly hypointense on T1, extending to the right sacral ALA. On review of the prior CT scan images, there is an undisplaced fracture of the right sacral ALA as well as the S2 sacral element, which is re demonstrated in the current examination . No adjacent hematoma. ALIGNMENT: Redemonstrated dextroscoliosis of the lumbar spine with convexity toward the right. The lumbar lordosis is reduced, which may be due to muscle spasm. Minimal retrolisthesis of L5 over S1, without spondylolysis. SPINAL CORD: Normal signal and contour. Spinal meningeal cysts are present in the sacral spinal canal at S2, S3 levels. DISCS/DEGENERATIVE CHANGES: Facet arthropathy and ligamentum flavum thickening are present at multiple levels. T12-L1: A central, bilateral paracentral 6 mm sized disc herniation causes thecal sac indentation, narrowing of the bilateral lateral recesses, more on the left side, compounded by moderate sized left sided facet arthropathy and mild right sided facet arthropathy without traversing nerve root impingement. L1-L2: 5 mm sized central, bilateral paracentral and foraminal protrusion of the disc with bilateral ligamentum flavum thickening and facet arthropathy causing lateral recesses with narrowing, without traversing nerve root impingement. There is moderate bilateral facetal arthropathy at this level. L2-L3: 5 mm sized central, bilateral paracentral and foraminal disc herniation, compounded by ligamentum flavum thickening and facet arthropathy causing spinal canal, lateral recesses and neural foraminal narrowing with bilateral traversing L3 and exiting L2 nerve roots impingement minimally, compounded by ligamentum flavum thickening and facetal arthropathy. L3-L4: Circumferential diffuse asymmetric bulge causing spinal canal, lateral recesses and neural foraminal narrowing, severe on the left side with left traversing L4, exiting L3 nerve roots compression. L4-L5: Diffuse circumferential asymmetric bulge of the disc causing spinal canal, lateral recesses and neural foraminal narrowing with compounded by ligamentum flavum thickening and facetal arthropathy with obliteration of the right lateral recess and severe narrowing of the right neural foramen with compression upon right traversing L5, exiting L4 nerve roots. L5-S1: Mild bilateral ligamentum flavum thickening and facet arthropathy. There is right foraminal and extraforaminal disc bulge impinging upon the exiting L5 nerve roots. PARASPINAL SOFT TISSUES: Paravertebral soft tissues are unremarkable. Redemonstrated is mild hepatomegaly measuring 17.5 cm. There is presence of bilateral renal cysts, the largest in the visualized extent at the upper pole of the right kidney measuring 2.8 x 3 cm. IMPRESSION: 1. Compared with the prior CT scan of the lumbar spine dated September 14, 2025, Stable undisplaced fracture of the right sacral ala and S2 sacral element. No adjacent hematoma. 2. Dextroscoliosis of the lumbar spine with convexity toward the right and reduced lumbar lordosis, possibly due to muscle spasm. 3. Multilevel degenerative changes in the lumbar spine, including disc herniations, bulges, ligamentum flavum thickening, and facet arthropathy, resulting in varying degrees of spinal canal, lateral recess, and neural foraminal narrowing with nerve root impingement as detailed above. /[place]
[2025-09-15] VITALS (11 sets, daily range): BP systolic 107–196; BP diastolic 59–111; PULSE 68–97; RESP 17–20; TEMP 97.6–98; O2SAT 95–98
[2025-09-15 04:52] LABS: NUCLEATED RED BLOOD CELLS 0.0 % (0.0-0.19); PLATELET COUNT (AUTO) 351.0 K/uL (130-400); RED BLOOD CELL COUNT(AUTO) 4.13 MIL/uL (4.00-5.50); RED CELL DISTRIBUTION WIDTH 12.6 % (11.0-15.5); WHITE BLOOD COUNT (AUTO) 8.9 K/uL (4.8-10.8)
[2025-09-15 05:28] LABS: % IRON SATURATION 16.3 % (22-44); IRON, SERUM 36.0 mcg/dL (50-170)
[2025-09-15 05:36] LABS: CREATININE 0.6 mg/dL (0.5-1.0); GLOMERULAR FILTR. RATE CALC 86.0 mL/min (>90); GLUCOSE,RANDOM 99.0 mg/dL (70-105); SODIUM SERUM 136.0 mmol/L (136-145); UREA NITROGEN, BLOOD 14.0 mg/dL (7-18)
[2025-09-15] MEDS: LISINOPRIL 40 MG TABLET PO SCH (10:35)
[2025-09-15] MEDS: ENOXAPARIN SODIUM 30 MG/0.3 ML SQ SCH (10:37)
[2025-09-15] MEDS: (Fluticasone/Umeclidin/Vilanter (Trelegy Ellipta 100-62.5-25MCG) IH SCH (10:44)
--- NOTE | 2025-09-15 11:00 | NUR ---
Both MRI and CT scan noted for multi level degenerative changes to lumbar region as well as nondisplaced R sacral ala. Neurology and orthopedics have been consulted.
--- NOTE | 2025-09-15 11:27 | PN ---
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 The patient is a poor historian. She does follow conversations. No family is present at bedside history is obtained from ER physician, chart review and from patient. Patient was noted to have lower back pain for the past three days. She went to [facility] ER where she underwent a x-ray. She was given prescription for baclofen and recommended to follow outpatient with the primary care provider. She did not fill her medications yet. She still had persistent lower back pain. She denies any changes in her urination and denies any abdominal pain, chest pain, shortness of breath. She lives alone at home and does not use a walker or a cane. Per does daughter she does have a provider who helps her at home. Denied any fever, chills, shortness of breath. Patient underwent CT lumbar spine which showed multilevel degenerative changes of the lumbar spine with diffuse disc bulges and severe bilateral neural foramina stenosis from L1 through L5, S1. There was no central canal stenosis are identified on CT. SUBJECTIVE: 09/14/2025: Patient was a evaluated along with her family members present at the bedside this afternoon. Patient was very somnolent and was not a good historian. Patient admitted to having low back pain however could not give an intensity. Patient's daughter informed that her pain started on the of last week, which was excruciating, without any motor or sensory weakness, urinary symptoms. Initially patient was taken to urgent care where she was prescribed baclofen. Patient's daughter reported she never took the medication and came to the ER. CT scan showed multilevel degenerative changes of L-spine with diffuse disc bulges and bilateral neuroforaminal stenosis from L1 through L5, S1. MRI of lumbar spine is pending. Prior to this pain patient was able to ambulate with the help of a sitter who spends nearly 4 hours with her at home. However over the last several months family reports reduced functional capacity. Patient has been following up with Dr. Franz for macular degeneration and is legally blind. Home meds have been reconciled and case management is on board. We will follow up with the MRI results, neurosurgery recommendation and ordered physical therapy as tolerated. 09/15/2025: Patient was evaluated at bedside. Patient had no acute events overnight however still admits to having lower back pain. Patient's blood pressure was not well controlled hence her home dose of lisinopril was increased to 40 mg daily. MRI of the lumbar spine showed stable nondisplaced fracture of right sacral ala and S2 sacral element, multilevel degenerative changes in lumbar spine with disc herniations, bulges, ligamentum flavum thickening and f acet arthropathy resulting in varying degrees of spinal canal, lateral recess and neural foraminal narrowing with nerve root impingement. Neurosurgery and Orthopedic consults have been placed and awaiting their recommendations. Case management working on placement at [facility] for physical therapy for rehabilitation. REVIEW OF SYSTEMS CONSTITUTIONAL: Denies fevers, chills, or night sweats. NEUROLOGICAL: Denies headache, motor weakness, sensory deficit, vertigo/spinning sensation, gait abnormalities, or tremors. ENT: No hearing loss, otalgia, otorrhea, rhinitis, rhinorrhea, hoarseness, or sore throat. CARDIOVASCULAR: Denies any exertional angina, dyspnea on exertion, orthopnea, paroxysmal nocturnal dyspnea, palpitations, life-threatening arrhythmias, lauren dication. PULMONARY: Denies any shortness of breath, cough, phlegm/sputum, hemoptysis, pleuritic chest pain. SLEEP: Denies morning headaches, daytime somnolence or napping. Denies difficulty falling asleep, staying asleep, waking from sleep. Denies knowledge of snoring. GASTROINTESTINAL: Denies any type of dysphagia to either liquids or solids. Denies nausea, vomiting, pyrosis, early satiety, abdominal pain, diarrhea, constipation, or changes in stool consistency or caliber. Denies coffee-ground emesis, hematemesis, hematochezia, or melanotic stools. GENITOURINARY: Denies frequency, urgency, nocturia, hematuria or incontinence (Storage/Irritative symptoms.) Low urinary stream, straining to void, urinary intermittency or hesitancy, splitting of the voiding stream, terminal dribbling. ENDOCRINOLOGIC: Denies polyuria, polydipsia, polyphagia or heat/cold intolerances. HEMATOLOGIC: Denies thrombophilia/previous clots, or coagulopathy/bleeding disorders. ONCOLOGIC: Denies personal history of malignancy. DERMATOLOGIC: Admits to easy bruising PSYCHIATRIC: Denies any suicidal or homicidal ideation. Denies hallucinations. Musculoskeletal: Positive for lower back pain PHYSICAL EXAM GENERAL APPEARANCE: Patient looks weak and debilitated, malnourished. The patient is awake, alert, and oriented, in no acute cardiopulmonary distress NEUROLOGICAL: Cranial nerves II-XII grossly intact. Motor is 5/5 in bilateral upper and lower extremities proximal to distal. No sensory deficits. HEENT: Face is symmetric. Pupils are equal and reactive. Extraocular movements are intact. NECK: Supple. No JVD. No thyromegaly. No submental, submandibular, pre- /postauricular, occipital or supraclavicular lymphadenopathy. CHEST: Normal chest expansion. No Telemetry. LUNGS: Absence of any rales, rhonchi or any wheezing. CARDIOVASCULAR: Regular. S1 and S2 normal. No appreciable rubs, murmurs or gallops. ABDOMEN: Soft, nontender, and nondistended. There is no rebound, voluntary guarding, or rigidity. : Deferred. No De Paz. EXTREMITIES: Non-edematous and not cyanotic. No clubbing. Good capillary refill. Tenderness to palpation in the lower back SKIN: No skin breakdown. Extensive bruise in the left lower leg from accidental trauma Vital Signs (last 8hr) Date Time Temp Pulse Resp B/P (MAP) Pulse Ox O2 Delivery O2 Flow Rate FiO2 09/15/25 11:21 97.9 91 18 135/90 97 Room Air 09/15/25 08:00 97.5 97 18 107/59 98 Room Air 09/15/25 07:07 97.7 68 17 196/93 94 Room Air LABS: Laboratory: Test 09/15/25 04:20 09/14/25 10:56 09/14/25 04:50 09/13/25 14:36 Range/Units White Blood Count 8.9 # 4.8-10.8 K/uL Red Blood Count 4.13 4.00-5.50 MIL/uL Hemoglobin 13.3 12.0-16.0 g/dL Hematocrit 39.7 36-48 % Mean Corpuscular Volume 96.1 79-99 fL Mean Corpuscular Hemoglobin 32.2 27.0-33.0 pg Mean Corpuscular Hemoglobin Concent 33.5 32.0-36.0 g/dL Red Cell Distribution Width 12.6 11.0-15.5 % Platelet Count 351 130-400 K/uL Mean Platelet Volume 9.6 7.5-10.5 fL Nucleated Red Blood Cells 0.0 0.0-0.19 % Reticulocyte Count (auto) 1.02045 0.42-2.23 % Immature Reticulocyte Fraction 13.10 H 0.18-0.48 % Sodium Level 136 136-145 mmol/L Potassium Level 3.8 3.5-5.1 mmol/L Chloride Level 102 101-111 mmol/L Carbon Dioxide Level 27 21-32 mmol/L Blood Urea Nitrogen 14 7-18 mg/dL Creatinine 0.6 0.5-1.0 mg/dL Glomerular Filtration Rate Calc 86 >90 mL/min Random Glucose 99 70-105 mg/dL Total Calcium 9.1 8.5-10.1 mg/dL Iron Level 36 L 50-170 mcg/dL Total Iron Binding Capacity 220 L 250-450 mcg/dL Percent Iron Saturation 16.3 L 22-44 % Ferritin 373 H 15-150 ng/mL Vitamin B12 Level 3155 H 193-986 pg/mL Thyroid Stimulating Hormone (TSH) 0.05 L 0.36-3.74 uIU/mL Free Thyroxine (T4) Direct 1.22 0.76-1.46 ng/dL Free Triiodothyronine (T3) pg/mL 1.50 L 2.18-3.98 pg/mL Ammonia < 10 L 11-32 umol/L Immature Granulocyte % (Auto) 0.5 0-1 % Neutrophils (%) (Auto) 63.1 40.0-77.0 % Lymphocytes (%) (Auto) 26.4 21.0-51.0 % Monocytes (%) (Auto) 8.2 3.0-13.0 % Eosinophils (%) (Auto) 1.2 0.0-8.0 % Basophils (%) (Auto) 0.6 0.0-5.0 % Neutrophils # (Auto) 4.2 1.8-7.7 K/uL Lymphocytes # (Auto) 1.7 1.0-4.8 K/uL Monocytes # (Auto) 0.5 0.1-1.0 K/uL Eosinophils # (Auto) 0.08 0.00-0.70 K/uL Basophils # (Auto) 0.04 0.00-0.20 K/uL Absolute Immature Granulocyte (auto 0.03 0-1 K/uL Hemoglobin A1c 6.0 4.0-6.0 % Estimated Average Glucose (eAG) 126 70-126 mg/dL Test 09/13/25 12:57 Range/Units Urine Color LIGHT-YELLOW YELLOW Urine Appearance CLEAR CLEAR Urine pH 6.0 5.0-8.0 Urine Specific [place] 1.012 1.001-1.031 Urine Protein NEGATIVE NEGATIVE mg/dL Urine Glucose (UA) NEGATIVE NEGATIVE mg/dL Urine Ketones NEGATIVE NEGATIVE mg/dL Urine Occult Blood NEGATIVE NEGATIVE Urine Nitrate NEGATIVE NEGATIVE Urine Bilirubin NEGATIVE NEGATIVE mg/dL Urine Urobilinogen 0.2 0.2-1.0 mg/dL Urine Leukocyte Esterase NEGATIVE NEGATIVE Harish/uL Current Medications Medications (Trade) Dose Ordered Sig/Mayur Route PRN Reason Start Time Stop Time Status Last Admin Dose Admin Acetaminophen (TYLenol 500MG TAB) 500 mg Q6H PRN PO MILD PAIN (1-3) 09/13/25 15:30 10/13/25 15:29 09/14/25 05:19 500 MG Acetaminophen (acetaMINOPHEN 1,000MG/100ML) 1,000 mg Q6H6 PRN IVPB Severe pain 7-10 09/14/25 16:00 10/14/25 15:59 09/15/25 02:19 1,000 MG Atorvastatin Calcium (LIPItor 10MG) 5 mg DAILY PO 09/15/25 09:00 10/15/25 08:59 09/15/25 10:34 5 MG Dorzolamide/ Timolol (Cosopt Eye Drops) 1 DROP TO AFFECTED EYE... BID OP 09/14/25 21:00 10/14/25 20:59 09/15/25 09:00 1 ML Enoxaparin Sodium (Lovenox) 30 mg DAILY SQ 09/15/25 09:00 10/15/25 08:59 09/15/25 10:37 30 MG Famotidine (Pepcid 20mg Vial) 20 mg Q24H IV 09/13/25 21:00 10/13/25 20:59 09/14/25 20:59 20 MG Home Med (Home Medication) (Fluticasone/ Umeclidin/ Vilan... DAILY IH 09/15/25 09:00 10/15/25 08:59 09/15/25 10:44 1 EACH Hydralazine HCl (APRESOLine 20MG INJ) 10 mg Q6H PRN IV ADMINISTER FOR SBP > 180 09/13/25 15:30 10/13/25 15:29 Lactulose (Constulose 20gm/ 30ml Udcup) 20 gm BID PRN PO CONSTIPATION 09/13/25 17:30 10/13/25 17:29 Latanoprost (Xalatan) 1 DROP HS OP 09/14/25 21:00 10/14/25 20:59 09/14/25 21:00 1 DROP Levothyroxine Sodium (SYNTHroid 100MCG TAB) 100 mcg SYN PO 09/14/25 06:30 10/14/25 06:29 09/15/25 06:26 100 MCG Lisinopril (Prinivil 20mg) 20 mg DAILY PO 09/14/25 09:00 09/15/25 07:44 DC 09/14/25 11:04 20 MG Lisinopril (Prinivil 40mg) 40 mg DAILY PO 09/15/25 09:00 10/15/25 08:59 09/15/25 10:35 40 MG Magnesium Sulfate 50 ml @ 0 mls/hr PROTOCOL PRN IV HYPOMAGNESEMIA 09/13/25 15:30 10/13/25 15:29 Potassium Chloride 100 ml @ 100 mls/hr AD PRN IV POTASSIUM PROTOCOL 09/13/25 15:30 10/13/25 15:29 Potassium Chloride (K-Dur/Klor-Con 20meq) 20 meq AD PRN PO POTASSIUM PROTOCOL 09/13/25 15:30 10/13/25 15:29 09/14/25 18:17 20 MEQ Potassium Chloride (KCl 10% Elixir 20meq/15ml) 20 meq AD PRN PO POTASSIUM PROTOCOL 09/13/25 15:30 10/13/25 15:29 Sodium Chloride 1,000 ml @ 75 mls/hr [id number] IV 09/13/25 15:30 10/13/25 15:29 09/15/25 06:26 75 MLS/HR DIAGNOSTICS / RADIOLOGY: [ ] PATIENT: WALT DAVILA MR#: [id number] : 1935 SEX: F AGE: 89 LOCATION: [facility] ORDER 25 STATUS: ADM IN REPORT#: [id number] SERVICE 20 REASON: LOWER BACK PAIN ORDERING PHYSICIAN: DELON DE LUNA MD PROCEDURE: L SPN WO - MR SPINAL CANAL, LUMBAR WO CON EXAM: MR Lumbar Spine without Intravenous Contrast. CLINICAL HISTORY: Lower back pain. TECHNIQUE: Magnetic resonance images of the lumbar spine without intravenous contrast in multiple planes. CONTRAST: Without. COMPARISON: Prior CT scan of the lumbar spine dated 09/14/2025. FINDINGS: VERTEBRAE: Redemonstrated dextroscoliosis of the lumbar spine with convexity toward the right. The lumbar lordosis is reduced, which may be due to muscle spasm. Anterior and posterior marginal osteophytes. Modic type II endplate changes at multiple levels. Schmorl's nodes are visualized at multiple levels. There is minimal retrolisthesis of L5 over S1, without spondylolysis. Bone marrow edema is present within the S2 vertebral body which is correspondingly hypointense on T1, extending to the right sacral ALA. On review of the prior CT scan images, there is an undisplaced fracture of the right sacral ALA as well as the S2 sacral element, which is re demonstrated in the current examination . No adjacent hematoma. ALIGNMENT: Redemonstrated dextroscoliosis of the lumbar spine with convexity toward the right. The lumbar lordosis is reduced, which may be due to muscle spasm. Minimal retrolisthesis of L5 over S1, without spondylolysis. SPINAL CORD: Normal signal and contour. Spinal meningeal cysts are present in the sacral spinal canal at S2, S3 levels. DISCS/DEGENERATIVE CHANGES: Facet arthropathy and ligamentum flavum thickening are present at multiple levels. T12-L1: A central, bilateral paracentral 6 mm sized disc herniation causes thecal sac indentation, narrowing of the bilateral lateral recesses, more on the left side, compounded by moderate sized left sided facet arthropathy and mild right sided facet arthropathy without traversing nerve root impingement. L1-L2: 5 mm sized central, bilateral paracentral and foraminal protrusion of the disc with bilateral ligamentum flavum thickening and facet arthropathy causing lateral recesses with narrowing, without traversing nerve root impingement. There is moderate bilateral facetal arthropathy at this level. L2-L3: 5 mm sized central, bilateral paracentral and foraminal disc herniation, compounded by ligamentum flavum thickening and facet arthropathy causing spinal canal, lateral recesses and neural foraminal narrowing with bilateral traversing L3 and exiting L2 nerve roots impingement minimally, compounded by ligamentum flavum thickening and facetal arthropathy. L3-L4: Circumferential diffuse asymmetric bulge causing spinal canal, lateral recesses and neural foraminal narrowing, severe on the left side with left traversing L4, exiting L3 nerve roots compression. L4-L5: Diffuse circumferential asymmetric bulge of the disc causing spinal canal, lateral recesses and neural foraminal narrowing with compounded by ligamentum flavum thickening and facetal arthropathy with obliteration of the right lateral recess and severe narrowing of the right neural foramen with compression upon right traversing L5, exiting L4 nerve roots. L5-S1: Mild bilateral ligamentum flavum thickening and facet arthropathy. There is right foraminal and extraforaminal disc bulge impinging upon the exiting L5 nerve roots. PARASPINAL SOFT TISSUES: Paravertebral soft tissues are unremarkable. Redemonstrated is mild hepatomegaly measuring 17.5 cm. There is presence of bilateral renal cysts, the largest in the visualized extent at the upper pole of the right kidney measuring 2.8 x 3 cm. IMPRESSION: 1. Compared with the prior CT scan of the lumbar spine dated September 14, 2025, Stable undisplaced fracture of the right sacral ala and S2 sacral element. No adjacent hematoma. 2. Dextroscoliosis of the lumbar spine with convexity toward the right and reduced lumbar lordosis, possibly due to muscle spasm. 3. Multilevel degenerative changes in the lumbar spine, including disc herniations, bulges, ligamentum flavum thickening, and facet arthropathy, resulting in varying degrees of spinal canal, lateral recess, and neural foraminal narrowing with nerve root impingement as detailed above. 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 Octogenarian POA Eye blindness due to macular degeneration POA Hypertension Hypothyroidism Dementia Debility Moderate malnutrition Constipation PLAN: Low back pain due to nondisplaced right sacral ala fracture POA * Patient presented with severe back pain CT spine revealed bilateral neural foraminal stenosis from L1 through L5 and S1 * Negative for motor, sensory weakness or loss of bladder control * MRI of lumbar spine showed stable nondisplaced fracture of right sacral ala and S2 sacral element, multilevel degenerative changes in lumbar spine with disc herniations, bulges, ligamentum flavum thickening and facet arthropathy resulting in varying degrees of spinal canal, lateral recess and neural foraminal narrowing with nerve root impingement. * IV Tylenol 1000 mg q.6 the PRN ordered for pain * Physical therapy evaluation placed, pending their recommendations after ortho and Neurosurgery plans * Ordered neurosurgery and orthopedic evaluations Hypothyroidism * Patient's TSH is 0.06, free T4 1.22, free T3 1.5 * Continue 100 mcg of levothyroxine Severe malnutrition * Patient's BMI is 20.3, 5th poor oral intake and muscle wasting * Nutritional evaluation supplementation thiamine 100 mg daily and multivitamin for 10 days * Monitor electrolytes replenish as needed per protocol * Monitor weights and encourage soft GI diet with ensure high-protein drinks General supportive measures * Continue GI soft diet * Increase lisinopril to 40 mg daily, atorvastatin 5 mg daily * Continue lactulose 20 mg b.i.d. PRN for constipation * Continue GI prophylaxis with famotidine and DVT prophylaxis with the enoxaparin 30 mg sq * Nurse informed about patient being legally blind and need assistance with feeding. * Patient's level of functioning has been progressively declining over the last several months and would highly benefit from physical therapy at SNF, case management working [facility]. ATTESTATION BY PHYSICIAN I have seen and examined the patient. I reviewed the documentation, medical decision making, and treatment plan as noted by the resident physician above. I agree with the findings and plan of care. IBIS ASHLEY MD, HARSHAVARDHA MD Sep 15, 2025 11:27
--- NOTE | 2025-09-15 15:05 | NUR ---
dr caldwell for consultation wo responce at this time
[2025-09-15] MEDS: THIAMINE HCL 100 MG TABLET PO SCH (15:34)
[2025-09-15] MEDS: MULTIVITAMIN TABLET PO SCH (15:34)
--- NOTE | 2025-09-15 15:55 | NUR ---
SPEECH NOTE: GEOGRAPHY HEAD coordinated with nurse Soria. As per nurse, patient tolerating diet recommendations of minced and moist solids, thin liquids with no s/s of aspiration. Please re-consult speech therapy services if any s/s of aspiration arise. All questions answered. Addendum: 09/18/[address] [facility]ISY JAMISON Amended: Links added.
--- NOTE | 2025-09-15 17:00 | NUR ---
REFERRAL SENT TO [facility] CAME TO SEE PATIENT. WILL SPEAK TO FAMILY. ACCEPTED FROM HIS POINT OF VIEW. PATIENT WAITING ON NEUROSURGERY INPUT. PT WAS NOT ABLE TO WORK MUCH WITH PT TODAY .
--- NOTE | 2025-09-15 18:26 | NUR ---
dr wheeler consultation informed/aware of dx no further orders
[2025-09-16] VITALS (7 sets, daily range): BP systolic 129–164; BP diastolic 79–102; PULSE 81–102; RESP 16–20; TEMP 97.6–98.1; O2SAT 96
[2025-09-16 05:06] LABS: NUCLEATED RED BLOOD CELLS 0.0 % (0.0-0.19); PLATELET COUNT (AUTO) 357.0 K/uL (130-400); RED BLOOD CELL COUNT(AUTO) 4.22 MIL/uL (4.00-5.50); RED CELL DISTRIBUTION WIDTH 12.6 % (11.0-15.5); WHITE BLOOD COUNT (AUTO) 8.2 K/uL (4.8-10.8)
[2025-09-16 05:25] LABS: CREATININE 0.6 mg/dL (0.5-1.0); GLOMERULAR FILTR. RATE CALC 86.0 mL/min (>90); GLUCOSE,RANDOM 134.0 mg/dL (70-105); SODIUM SERUM 136.0 mmol/L (136-145); UREA NITROGEN, BLOOD 17.0 mg/dL (7-18)
--- NOTE | 2025-09-16 14:36 | EKG ---
[facility] Test Date: 2025-09-16 Test Time: 14:33:25 Pat Name: WALT DAVILA Department: 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
--- NOTE | 2025-09-16 15:35 | PN ---
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 The patient is a poor historian. She does follow conversations. No family is present at bedside history is obtained from ER physician, chart review and from patient. Patient was noted to have lower back pain for the past three days. She went to [facility] where she underwent a x-ray. She was given prescription for baclofen and recommended to follow outpatient with the primary care provider. She did not fill her medications yet. She still had persistent lower back pain. She denies any changes in her urination and denies any abdominal pain, chest pain, shortness of breath. She lives alone at home and does not use a walker or a cane. Per does daughter she does have a provider who helps her at home. Denied any fever, chills, shortness of breath. Patient underwent CT lumbar spine which showed multilevel degenerative changes of the lumbar spine with diffuse disc bulges and severe bilateral neural foramina stenosis from L1 through L5, S1. There was no central canal stenosis are identified on CT. SUBJECTIVE: 09/14/2025: Patient was a evaluated along with her family members present at the bedside this afternoon. Patient was very somnolent and was not a good historian. Patient admitted to having low back pain however could not give an intensity. Patient's daughter informed that her pain started on the of last week, which was excruciating, without any motor or sensory weakness, urinary symptoms. Initially patient was taken to urgent care where she was prescribed baclofen. Patient's daughter reported she never took the medication and came to the ER. CT scan showed multilevel degenerative changes of L-spine with diffuse disc bulges and bilateral neuroforaminal stenosis from L1 through L5, S1. MRI of lumbar spine is pending. Prior to this pain patient was able to ambulate with the help of a sitter who spends nearly 4 hours with her at home. However over the last several months family reports reduced functional capacity. Patient has been following up with Dr. Franz for macular degeneration and is legally blind. Home meds have been reconciled and case management is on board. We will follow up with the MRI results, neurosurgery recommendation and ordered physical therapy as tolerated. 09/15/2025: Patient was evaluated at bedside. Patient had no acute events overnight however still admits to having lower back pain. Patient's blood pressure was not well controlled hence her home dose of lisinopril was increased to 40 mg daily. MRI of the lumbar spine showed stable nondisplaced fracture of right sacral ala and S2 sacral element, multilevel degenerative changes in lumbar spine with disc herniations, bulges, ligamentum flavum thickening and f acet arthropathy resulting in varying degrees of spinal canal, lateral recess and neural foraminal narrowing with nerve root impingement. Neurosurgery and Orthopedic consults have been placed and awaiting their recommendations. Case management working on placement at [facility] for physical therapy for rehabilitation. 09/16/2025: Patient was evaluated bedside in [facility]. Patient did not have proper sleep last night due to low back pain however during her evaluation in [facility] she appeared in no acute distress and was seen sitting upright in her chair with several family members around her. Patient was cleared by Neurosurgery and Orthopedic teams and recommended physical therapy at [facility]. Patient were approved at [facility] for physical therapy. Before placing the discharge orders in afternoon, we were notified of patient becoming more confused, hallucinating about chickens in a farm and repeatedly getting out of her bed. There was no family present at the time and based on the discussions we had on 09/14/2025 with the patient's daughter, patient has underlying dementia which has been worsening in the recent months. Patient was placed on 1 on 1 sitter and a urine analysis and ammonia levels were obtained. We will repeat a CT head tomorrow morning as patient refused now. We will re- evaluate her mental state tomorrow and consider for discharge. REVIEW OF SYSTEMS CONSTITUTIONAL: Denies fevers, chills, or night sweats. NEUROLOGICAL: Denies headache, motor weakness, sensory deficit, vertigo/spinning sensation, gait abnormalities, or tremors. ENT: No hearing loss, otalgia, otorrhea, rhinitis, rhinorrhea, hoarseness, or sore throat. CARDIOVASCULAR: Denies any exertional angina, dyspnea on exertion, orthopnea, paroxysmal nocturnal dyspnea, palpitations, life-threatening arrhythmias, claudication. PULMONARY: Denies any shortness of breath, cough, phlegm/sputum, hemoptysis, pleuritic chest pain. SLEEP: Denies morning headaches, daytime somnolence or napping. Denies difficulty falling asleep, staying asleep, waking from sleep. Denies knowledge of snoring. GASTROINTESTINAL: Denies any type of dysphagia to either liquids or solids. Denies nausea, vomiting, pyrosis, early satiety, abdominal pain, diarrhea, constipation, or changes in stool consistency or caliber. Denies coffee-ground emesis, hematemesis, hematochezia, or melanotic stools. GENITOURINARY: Denies frequency, urgency, nocturia, hematuria or incontinence (Storage/Irritative symptoms.) Low urinary stream, straining to void, urinary intermittency or hesitancy, splitting of the voiding stream, terminal dribbling. ENDOCRINOLOGIC: Denies polyuria, polydipsia, polyphagia or heat/cold intolerances. HEMATOLOGIC: Denies thrombophilia/previous clots, or coagulopathy/bleeding disorders. ONCOLOGIC: Denies personal history of malignancy. DERMATOLOGIC: Admits to easy bruising PSYCHIATRIC: Denies any suicidal or homicidal ideation. Denies hallucinations. Musculoskeletal: Positive for lower back pain PHYSICAL EXAM GENERAL APPEARANCE: Patient looks weak and debilitated, malnourished. The pa tient is awake, alert, but not oriented to time and place, in no acute cardiopulmonary distress NEUROLOGICAL: Cranial nerves II-XII grossly intact. Motor is 5/5 in bilateral upper and lower extremities proximal to distal. No sensory deficits. HEENT: Face is symmetric. Pupils are equal and reactive. Extraocular movements are intact. NECK: Supple. No JVD. No thyromegaly. No submental, submandibular, pre- /postauricular, occipital or supraclavicular lymphadenopathy. CHEST: Normal chest expansion. No Telemetry. LUNGS: Absence of any rales, rhonchi or any wheezing. CARDIOVASCULAR: Regular. S1 and S2 normal. No appreciable rubs, murmurs or gallops. ABDOMEN: Soft, nontender, and nondistended. There is no rebound, voluntary guarding, or rigidity. : Deferred. No De Paz. EXTREMITIES: Non-edematous and not cyanotic. No clubbing. Good capillary refill. Tenderness to palpation in the lower back SKIN: No skin breakdown. Extensive bruise in the left lower leg from accident al trauma Vital Signs (last 8hr) Date Time Temp Pulse Resp B/P (MAP) Pulse Ox O2 Delivery O2 Flow Rate FiO2 09/16/25 08:00 98.1 84 16 159/96 97 Room Air 21 09/16/25 08:00 96 Room Air* 0 21 LABS: Laboratory: Test 09/16/25 04:36 09/15/25 04:20 Range/Units White Blood Count 8.2 4.8-10.8 K/uL Red Blood Count 4.22 4.00-5.50 MIL/uL Hemoglobin 13.3 12.0-16.0 g/dL Hematocrit 39.8 36-48 % Mean Corpuscular Volume 94.3 79-99 fL Mean Corpuscular Hemoglobin 31.5 27.0-33.0 pg Mean Corpuscular Hemoglobin Concent 33.4 32.0-36.0 g/dL Red Cell Distribution Width 12.6 11.0-15.5 % Platelet Count 357 130-400 K/uL Mean Platelet Volume 9.6 7.5-10.5 fL Nucleated Red Blood Cells 0.0 0.0-0.19 % Sodium Level 136 136-145 mmol/L Potassium Level 3.4 L 3.5-5.1 mmol/L Chloride Level 102 101-111 mmol/L Carbon Dioxide Level 24 21-32 mmol/L Blood Urea Nitrogen 17 7-18 mg/dL Creatinine 0.6 0.5-1.0 mg/dL Glomerular Filtration Rate Calc 86 >90 mL/min Random Glucose 134 H 70-105 mg/dL Total Calcium 8.8 8.5-10.1 mg/dL Reticulocyte Count (auto) 1.42223 0.42-2.23 % Immature Reticulocyte Fraction 13.10 H 0.18-0.48 % Iron Level 36 L 50-170 mcg/dL Total Iron Binding Capacity 220 L 250-450 mcg/dL Percent Iron Saturation 16.3 L 22-44 % Ferritin 373 H 15-150 ng/mL Vitamin B12 Level 3155 H 193-986 pg/mL Thyroid Stimulating Hormone (TSH) 0.05 L 0.36-3.74 uIU/mL Free Thyroxine (T4) Direct 1.22 0.76-1.46 ng/dL Free Triiodothyronine (T3) pg/mL 1.50 L 2.18-3.98 pg/mL Current Medications Medications (Trade) Dose Ordered Sig/Mayur Route PRN Reason Start Time Stop Time Status Last Admin Dose Admin Acetaminophen (TYLenol 500MG TAB) 500 mg Q6H PRN PO MILD PAIN (1-3) 09/13/25 15:30 10/13/25 15:29 09/14/25 05:19 500 MG Acetaminophen (acetaMINOPHEN 1,000MG/100ML) 1,000 mg BID IVPB 09/15/25 21:00 09/16/25 20:59 09/16/25 08:14 1,000 MG Acetaminophen (acetaMINOPHEN 1,000MG/100ML) 1,000 mg Q6H6 PRN IVPB Severe pain 7-10 09/14/25 16:00 09/15/25 20:59 DC 09/15/25 02:19 1,000 MG Amlodipine Besylate (NorvASC 5MG TAB) 5 mg DAILY PO 09/16/25 14:00 10/16/25 13:59 Atorvastatin Calcium (LIPItor 10MG) 5 mg DAILY PO 09/15/25 09:00 10/15/25 08:59 09/16/25 08:15 5 MG Dorzolamide/ Timolol (Cosopt Eye Drops) 1 DROP TO AFFECTED EYE... BID OP 09/14/25 21:00 10/14/25 20:59 09/16/25 08:15 1 ML Enoxaparin Sodium (Lovenox) 30 mg DAILY SQ 09/15/25 09:00 10/15/25 08:59 09/16/25 08:15 30 MG Famotidine (Pepcid 20mg Vial) 20 mg Q24H IV 09/13/25 21:00 10/13/25 20:59 09/15/25 21:38 20 MG Home Med (Home Medication) (Fluticasone/ Umeclidin/ Vilan... DAILY IH 09/15/25 09:00 10/15/25 08:59 09/16/25 08:16 1 EACH Hydralazine HCl (APRESOLine 20MG INJ) 10 mg Q6H PRN IV ADMINISTER FOR SBP > 180 09/13/25 15:30 10/13/25 15:29 09/15/25 19:15 10 MG Lactulose (Constulose 20gm/ 30ml Udcup) 20 gm BID PRN PO CONSTIPATION 09/13/25 17:30 10/13/25 17:29 Latanoprost (Xalatan) 1 DROP HS OP 09/14/25 21:00 10/14/25 20:59 09/15/25 21:40 1 DROP Levothyroxine Sodium (SYNTHroid 100MCG TAB) 100 mcg SYN PO 09/14/25 06:30 10/14/25 06:29 09/16/25 06:26 100 MCG Lisinopril (Prinivil 20mg) 20 mg DAILY PO 09/14/25 09:00 09/15/25 07:44 DC 09/14/25 11:04 20 MG Lisinopril (Prinivil 40mg) 40 mg DAILY PO 09/15/25 09:00 10/15/25 08:59 09/16/25 08:14 40 MG Magnesium Sulfate 50 ml @ 0 mls/hr PROTOCOL PRN IV HYPOMAGNESEMIA 09/13/25 15:30 10/13/25 15:29 Multivitamins Therapeutic (Multivitamin Tablet) 1 tab DAILY PO 09/15/25 15:30 10/15/25 15:29 09/16/25 08:14 1 TAB Potassium Chloride 100 ml @ 100 mls/hr AD PRN IV POTASSIUM PROTOCOL 09/13/25 15:30 10/13/25 15:29 Potassium Chloride (K-Dur/Klor-Con 20meq) 20 meq AD PRN PO POTASSIUM PROTOCOL 09/13/25 15:30 10/13/25 15:29 09/16/25 12:42 20 MEQ Potassium Chloride (KCl 10% Elixir 20meq/15ml) 20 meq AD PRN PO POTASSIUM PROTOCOL 09/13/25 15:30 10/13/25 15:29 Sodium Chloride 1,000 ml @ 75 mls/hr [id number] IV 09/13/25 15:30 09/16/25 11:15 DC 09/15/25 19:17 75 MLS/HR Thiamine HCl (Vitamin B-1) 100 mg DAILY PO 09/15/25 15:30 10/15/25 15:29 09/16/25 08:14 100 MG DIAGNOSTICS / RADIOLOGY: [ ] ASSESSMENT: Persistent lower back pain, due to a nondisplaced right sacral ala fracture POA 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 Octogenarian POA Eye blindness due to macular degeneration POA Hypertension Hypothyroidism Acute delirium with underlying Dementia Debility Moderate malnutrition Constipation PLAN: Low back pain due to nondisplaced right sacral ala fracture POA * Patient presented with severe back pain CT spine revealed bilateral neural foraminal stenosis from L1 through L5 and S1 * Negative for motor, sensory weakness or loss of bladder control * MRI of lumbar spine showed stable nondisplaced fracture of right sacral ala and S2 sacral element, multilevel degenerative changes in lumbar spine with disc herniations, bulges, ligamentum flavum thickening and facet arthropathy resulting in varying degrees of spinal canal, lateral recess and neural foraminal narrowing with nerve root impingement. * IV Tylenol 1000 mg b.i.d. ordered for pain * Physical therapy evaluation placed * Neurosurgery and orthopedic recommended physical therapy and no surgical interventions * Patient got approval for physical therapy at [facility] Acute delirium with underlying Dementia * Patient has dementia which has been progressively worsening with functional decline * Today patient became acutely confused, hallucinating and restless which as needed significant efforts to reorient * Repeat urine analysis to rule out UTI * Ammonia levels were less than 11 * Ordered CT head to rule out intracranial pathology * EKG showed a QT prolongation, with QTC of 467; we will consider time IM haloperidol 5 mg for severe agitation * Keep the TV on for auditory stimulation, blinds open during daytime and other reorientation measures Hypothyroidism * Patient's TSH is 0.06, free T4 1.22, free T3 1.5 * Continue 100 mcg of levothyroxine Severe malnutrition * Patient's BMI is 20.3, 5th poor oral intake and muscle wasting * Nutritional evaluation supplementation thiamine 100 mg daily and multivitamin for 10 days * Monitor electrolytes replenish as needed per protocol * Monitor weights and encourage soft GI diet with ensure high-protein drinks General supportive measures * Continue GI soft diet * Continue lisinopril to 40 mg daily, 5 mg amlodipine daily and continue the upon discharge * Further adjustment of blood pressure medication as per PCP * Continue atorvastatin 5 mg daily * Continue lactulose 20 mg b.i.d. PRN for constipation * Continue GI prophylaxis with famotidine and DVT prophylaxis with the nela xaparin 30 mg sq * Patient is legally blind and needs assistance with feeding. * Patient's level of functioning has been progressively declining over the last several months and would highly benefit from physical therapy. ATTESTATION BY PHYSICIAN I have seen and examined the patient. I reviewed the documentation, medical decision making, and treatment plan as noted by the resident physician above. I agree with the findings and plan of care. IBIS ASHLEY MD, HARSHAVARDHA MD Sep 16, 2025 15:35
--- NOTE | 2025-09-16 16:10 | NUR ---
CT EXAM ON HOLD UNTIL FURTHER NOTICE: PATIENT REFUSING. NURSE WILL NOTIFY PROVIDER & WILL CALL US BACK WITH AN UPDATE.
--- NOTE | 2025-09-16 16:18 | NUR ---
PER NURSE, CT EXAM TO BE DONE TOMORROW 09/17/2025.
[2025-09-16] MEDS: amLODIPine 5 MG TAB PO SCH (20:18)
[2025-09-16] MEDS: HALOPERIDOL INJ 5 MG/ML VIAL IM PRN (20:33)
[2025-09-17] VITALS (8 sets, daily range): BP systolic 124–165; BP diastolic 77–109; PULSE 77–97; RESP 16–20; TEMP 97.2–98.7; O2SAT 94–95
[2025-09-17 04:52] LABS: NUCLEATED RED BLOOD CELLS 0.0 % (0.0-0.19); PLATELET COUNT (AUTO) 312.0 K/uL (130-400); RED BLOOD CELL COUNT(AUTO) 4.06 MIL/uL (4.00-5.50); RED CELL DISTRIBUTION WIDTH 12.7 % (11.0-15.5); WHITE BLOOD COUNT (AUTO) 8.8 K/uL (4.8-10.8)
[2025-09-17 05:05] LABS: CREATININE 0.5 mg/dL (0.5-1.0); GLOMERULAR FILTR. RATE CALC 90.0 mL/min (>90); GLUCOSE,RANDOM 101.0 mg/dL (70-105); SODIUM SERUM 135.0 mmol/L (136-145); UREA NITROGEN, BLOOD 14.0 mg/dL (7-18)
--- NOTE | 2025-09-17 15:23 | PN ---
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 The patient is a poor historian. She does follow conversations. No family is present at bedside history is obtained from ER physician, chart review and from patient. Patient was noted to have lower back pain for the past three days. She went to [facility] ER where she underwent a x-ray. She was given prescription for baclofen and recommended to follow outpatient with the primary care provider. She did not fill her medications yet. She still had persistent lower back pain. She denies any changes in her urination and denies any abdominal pain, chest pain, shortness of breath. She lives alone at home and does not use a walker or a cane. Per does daughter she does have a provider who helps her at home. Denied any fever, chills, shortness of breath. Patient underwent CT lumbar spine which showed multilevel degenerative changes of the lumbar spine with diffuse disc bulges and severe bilateral neural foramina stenosis from L1 through L5, S1. There was no central canal stenosis are identified on CT. SUBJECTIVE: 09/14/2025: Patient was a evaluated along with her family members present at the bedside this afternoon. Patient was very somnolent and was not a good historian. Patient admitted to having low back pain however could not give an intensity. Patient's daughter informed that her pain started on the of last week, which was excruciating, without any motor or sensory weakness, urinary symptoms. Initially patient was taken to urgent care where she was prescribed baclofen. Patient's daughter reported she never took the medication and came to the ER. CT scan showed multilevel degenerative changes of L-spine with diffuse disc bulges and bilateral neuroforaminal stenosis from L1 through L5, S1. MRI of lumbar spine is pending. Prior to this pain patient was able to ambulate with the help of a sitter who spends nearly 4 hours with her at home. However over the last several months family reports reduced functional capacity. Patient has been following up with Dr. Franz for macular degeneration and is legally blind. Home meds have been reconciled and case management is on board. We will follow up with the MRI results, neurosurgery recommendation and ordered physical therapy as tolerated. 09/15/2025: Patient was evaluated at bedside. Patient had no acute events overnight however still admits to having lower back pain. Patient's blood pressure was not well controlled hence her home dose of lisinopril was increased to 40 mg daily. MRI of the lumbar spine showed stable nondisplaced fracture of right sacral ala and S2 sacral element, multilevel degenerative changes in lumbar spine with disc herniations, bulges, ligamentum flavum thickening and f acet arthropathy resulting in varying degrees of spinal canal, lateral recess and neural foraminal narrowing with nerve root impingement. Neurosurgery and Orthopedic consults have been placed and awaiting their recommendations. Case management working on placement at [facility] for physical therapy for rehabilitation. 09/16/2025: Patient was evaluated bedside in 409. Patient did not have proper sleep last night due to low back pain however [facility] she appeared in no acute distress and was seen sitting upright in her chair with several family members around her. Patient was cleared by Neurosurgery and Orthopedic teams and recommended physical therapy at [facility]. Patient were approved at [facility] for physical therapy. Before placing the discharge orders in afternoon, we were notified of patient becoming more confused, hallucinating about chickens in a farm and repeatedly getting out of her bed. There was no family present at the time and based on the discussions we had on 09/14/2025 with the patient's daughter, patient has underlying dementia which has been worsening in the recent months. Patient was placed on 1 on 1 sitter and a urine analysis and ammonia levels were obtained. We will repeat a CT head tomorrow morning as patient refused now. We will re- evaluate her mental state tomorrow and consider for discharge. 09/17/2025-patient was evaluated at the bedside. Patient says she is not able to move needs assistance. Patient's daughter stated that patient has past medical history of dementia and has a history of macular degeneration now partially by blind. She is debilitated and malnourished, failure to survive severe protein calorie no nutrition and depending on albumin. Her BMI is 19.8. Current albumin levels 3.2. Since hospital stay, patient is mainly bed-bound a change in functional status. Patient's daughter wants to go home with hospice, shows [facility]. REVIEW OF SYSTEMS CONSTITUTIONAL: Denies fevers, chills, or night sweats. NEUROLOGICAL: Denies headache, motor weakness, sensory deficit, vertigo/spinning sensation, gait abnormalities, or tremors. ENT: No hearing loss, otalgia, otorrhea, rhinitis, rhinorrhea, hoarseness, or sore throat. CARDIOVASCULAR: Denies any exertional angina, dyspnea on exertion, orthopnea, paroxysmal nocturnal dyspnea, palpitations, life-threatening arrhythmias, claudication. PULMONARY: Denies any shortness of breath, cough, phlegm/sputum, hemoptysis, pleuritic chest pain. SLEEP: Denies morning headaches, daytime somnolence or napping. Denies difficulty falling asleep, staying asleep, waking from sleep. Denies knowledge of snoring. GASTROINTESTINAL: Denies any type of dysphagia to either liquids or solids. Denies nausea, vomiting, pyrosis, early satiety, abdominal pain, diarrhea, constipation, or changes in stool consistency or caliber. Denies coffee-ground emesis, hematemesis, hematochezia, or melanotic stools. GENITOURINARY: Denies frequency, urgency, nocturia, hematuria or incontinence (Storage/Irritative symptoms.) Low urinary stream, straining to void, urinary intermittency or hesitancy, splitting of the voiding stream, terminal dribbling. ENDOCRINOLOGIC: Denies polyuria, polydipsia, polyphagia or heat/cold intolerances. HEMATOLOGIC: Denies thrombophilia/previous clots, or coagulopathy/bleeding disorders. ONCOLOGIC: Denies personal history of malignancy. DERMATOLOGIC: Admits to easy bruising PSYCHIATRIC: Denies any suicidal or homicidal ideation. Denies hallucinations. Musculoskeletal: Positive for lower back pain PHYSICAL EXAM GENERAL APPEARANCE: Patient looks weak and debilitated, malnourished. The patient is awake, alert, but not oriented to time and place, in no acute cardiopulmonary distress NEUROLOGICAL: Cranial nerves II-XII grossly intact. Motor is 5/5 in bilateral upper and lower extremities proximal to distal. No sensory deficits. HEENT: Face is symmetric. Pupils are equal and reactive. Extraocular movements are intact. NECK: Supple. No JVD. No thyromegaly. No submental, submandibular, pre- /postauricular, occipital or supraclavicular lymphadenopathy. CHEST: Normal chest expansion. No Telemetry. LUNGS: Absence of any rales, rhonchi or any wheezing. CARDIOVASCULAR: Regular. S1 and S2 normal. No appreciable rubs, murmurs or gallops. ABDOMEN: Soft, nontender, and nondistended. There is no rebound, voluntary guarding, or rigidity. : Deferred. No De Paz. EXTREMITIES: Non-edematous and not cyanotic. No clubbing. Good capillary refill. Tenderness to palpation in the lower back SKIN: No skin breakdown. Extensive bruise in the left lower leg from accidental trauma Vital Signs (last 8hr) Date Time Temp Pulse Resp B/P (MAP) Pulse Ox O2 Delivery O2 Flow Rate FiO2 09/17/25 11:12 98.2 93 16 141/85 94 Room Air 09/17/25 09:00 95 Room Air* 0 21 09/17/25 08:54 97.2 77 16 161/109 95 Room Air LABS: Laboratory: Test 09/17/25 04:08 09/16/25 15:25 09/16/25 04:36 Range/Units White Blood Count 8.8 4.8-10.8 K/uL Red Blood Count 4.06 4.00-5.50 MIL/uL Hemoglobin 12.9 12.0-16.0 g/dL Hematocrit 38.7 36-48 % Mean Corpuscular Volume 95.3 79-99 fL Mean Corpuscular Hemoglobin 31.8 27.0-33.0 pg Mean Corpuscular Hemoglobin Concent 33.3 32.0-36.0 g/dL Red Cell Distribution Width 12.7 11.0-15.5 % Platelet Count 312 130-400 K/uL Mean Platelet Volume 9.9 7.5-10.5 fL Nucleated Red Blood Cells 0.0 0.0-0.19 % Sodium Level 135 L 136-145 mmol/L Potassium Level 3.9 3.5-5.1 mmol/L Chloride Level 103 101-111 mmol/L Carbon Dioxide Level 24 21-32 mmol/L Blood Urea Nitrogen 14 7-18 mg/dL Creatinine 0.5 0.5-1.0 mg/dL Glomerular Filtration Rate Calc 90 >90 mL/min Random Glucose 101 70-105 mg/dL Total Calcium 8.9 8.5-10.1 mg/dL Albumin 3.2 L 3.5-5.0 g/dL Ammonia < 10 L 11-32 umol/L Vitamin D 25-Hydroxy 11.4 30.0-100.0 ng/mL Current Medications Medications (Trade) Dose Ordered Sig/Mayur Route PRN Reason Start Time Stop Time Status Last Admin Dose Admin Acetaminophen (TYLenol 500MG TAB) 500 mg Q6H PRN PO MILD PAIN (1-3) 09/13/25 15:30 10/13/25 15:29 09/14/25 05:19 500 MG Acetaminophen (acetaMINOPHEN 1,000MG/100ML) 1,000 mg BID IVPB 09/15/25 21:00 09/16/25 20:59 DC 09/16/25 08:14 1,000 MG Acetaminophen (acetaMINOPHEN 1,000MG/100ML) 1,000 mg Q6H6 PRN IVPB Severe pain 7-10 09/14/25 16:00 09/15/25 20:59 DC 09/15/25 02:19 1,000 MG Amlodipine Besylate (NorvASC 5MG TAB) 5 mg DAILY PO 09/16/25 14:00 10/16/25 13:59 09/17/25 10:24 5 MG Atorvastatin Calcium (LIPItor 10MG) 5 mg DAILY PO 09/15/25 09:00 10/15/25 08:59 09/17/25 10:24 5 MG Dorzolamide/ Timolol (Cosopt Eye Drops) 1 DROP TO AFFECTED EYE... BID OP 09/14/25 21:00 10/14/25 20:59 09/17/25 10:32 1 ML Enoxaparin Sodium (Lovenox) 30 mg DAILY SQ 09/15/25 09:00 10/15/25 08:59 09/17/25 10:25 30 MG Famotidine (Pepcid 20mg Vial) 20 mg Q24H IV 09/13/25 21:00 10/13/25 20:59 09/16/25 20:19 20 MG Haloperidol Lactate (Haldol Inj) 5 mg ONCE PRN IM agitation 09/16/25 17:30 10/16/25 17:29 09/16/25 20:33 5 MG Home Med (Home Medication) (Fluticasone/ Umeclidin/ Vilan... DAILY IH 09/15/25 09:00 10/15/25 08:59 09/17/25 09:00 1 EACH Hydralazine HCl (APRESOLine 20MG INJ) 10 mg Q6H PRN IV ADMINISTER FOR SBP > 180 09/13/25 15:30 10/13/25 15:29 09/15/25 19:15 10 MG Lactulose (Constulose 20gm/ 30ml Udcup) 20 gm BID PRN PO CONSTIPATION 09/13/25 17:30 10/13/25 17:29 Latanoprost (Xalatan) 1 DROP HS OP 09/14/25 21:00 10/14/25 20:59 09/16/25 20:25 1 DROP Levothyroxine Sodium (SYNTHroid 100MCG TAB) 100 mcg SYN PO 09/14/25 06:30 10/14/25 06:29 09/17/25 06:40 100 MCG Lisinopril (Prinivil 20mg) 20 mg DAILY PO 09/14/25 09:00 09/15/25 07:44 DC 09/14/25 11:04 20 MG Lisinopril (Prinivil 40mg) 40 mg DAILY PO 09/15/25 09:00 10/15/25 08:59 09/17/25 10:25 40 MG Magnesium Sulfate 50 ml @ 0 mls/hr PROTOCOL PRN IV HYPOMAGNESEMIA 09/13/25 15:30 10/13/25 15:29 Multivitamins Therapeutic (Multivitamin Tablet) 1 tab DAILY PO 09/15/25 15:30 10/15/25 15:29 09/17/25 10:24 1 TAB Potassium Chloride 100 ml @ 100 mls/hr AD PRN IV POTASSIUM PROTOCOL 09/13/25 15:30 10/13/25 15:29 Potassium Chloride (K-Dur/Klor-Con 20meq) 20 meq AD PRN PO POTASSIUM PROTOCOL 09/13/25 15:30 10/13/25 15:29 09/16/25 12:42 20 MEQ Potassium Chloride (KCl 10% Elixir 20meq/15ml) 20 meq AD PRN PO POTASSIUM PROTOCOL 09/13/25 15:30 10/13/25 15:29 Sodium Chloride 1,000 ml @ 75 mls/hr [id number] IV 09/13/25 15:30 09/16/25 11:15 DC 09/15/25 19:17 75 MLS/HR Thiamine HCl (Vitamin B-1) 100 mg DAILY PO 09/15/25 15:30 10/15/25 15:29 09/17/25 10:24 100 MG DIAGNOSTICS / RADIOLOGY: [ ] ASSESSMENT: Persistent lower back pain, due to a nondisplaced right sacral ala fracture POA 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 Octogenarian POA Eye blindness due to macular degeneration POA Hypertension Hypothyroidism Acute delirium with underlying Dementia Debility Moderate malnutrition Constipation PLAN: Low back pain due to nondisplaced right sacral ala fracture POA * Patient presented with severe back pain CT spine revealed bilateral neural foraminal stenosis from L1 through L5 and S1 * Negative for motor, sensory weakness or loss of bladder control * MRI of lumbar spine showed stable nondisplaced fracture of right sacral ala and S2 sacral element, multilevel degenerative changes in lumbar spine with disc herniations, bulges, ligamentum flavum thickening and facet arthropathy resulting in varying degrees of spinal canal, lateral recess and neural foraminal narrowing with nerve root impingement. * IV Tylenol 1000 mg b.i.d. ordered for pain * Physical therapy evaluation placed * Neurosurgery and orthopedic recommended physical therapy and no surgical interventions * Patient got approval for physical therapy at [facility] Acute delirium with underlying Dementia * Patient has dementia which has been progressively worsening with functional decline * Today patient became acutely confused, hallucinating and restless which as needed significant efforts to reorient * Repeat urine analysis to rule out UTI * Ammonia levels were less than 11 * Ordered CT head to rule out intracranial pathology * EKG showed a QT prolongation, with QTC of 467; we will consider time IM haloperidol 5 mg for severe agitation * Keep the TV on for auditory stimulation, blinds open during daytime and other reorientation measures Hypothyroidism * Patient's TSH is 0.06, free T4 1.22, free T3 1.5 * Continue 100 mcg of levothyroxine Severe malnutrition * Patient's BMI is 20.3, 5th poor oral intake and muscle wasting * Nutritional evaluation supplementation thiamine 100 mg daily and multivitamin for 10 days * Monitor electrolytes replenish as needed per protocol * Monitor weights and encourage soft GI diet with ensure high-protein drinks General supportive measures * Continue GI soft diet * Continue lisinopril to 40 mg daily, 5 mg amlodipine daily and continue the upon discharge * Further adjustment of blood pressure medication as per PCP * Continue atorvastatin 5 mg daily * Continue lactulose 20 mg b.i.d. PRN for constipation * Continue GI prophylaxis with famotidine and DVT prophylaxis with the enoxaparin 30 mg sq * Patient is legally blind and needs assistance with feeding. * Patient's level of functioning has been progressively declining over the last several months and would highly benefit from physical therapy. ATTESTATION BY PHYSICIAN I have seen and examined the patient. I reviewed the documentation, medical dec ision making, and treatment plan as noted by the resident physician above. I agree with the findings and plan of care. IBIS ASHLEY MD, AISHWARYA MD Sep 17, 2025 15:23
--- NOTE | 2025-09-17 16:47 | NUR ---
DC PLAN CM SPOKE WITH DAUGHTER AND WITH DR ASHLEY. THE 1:1 BACK DUE TO PATIENTS BECOMING MORE AGITATED. NEW PLAN IS TO GO HOME WITH HOSPICE. BONI SIGNED FOR MAIN DAUGHTER ALSO WANTS HOME HEALTH FOR PHYSICAL THERAPY WANTS INFO SENT TO [facility]. PACKET SENT TO MAIN. DAUGHTER LOOKING FOR CAREGIVER.
[2025-09-18] VITALS: BP 122/79; PULSE 87; RESP 18; TEMP 97.4
[2025-09-18 04:35] VITALS: BP 144/80; PULSE 92; RESP 16; TEMP 98.3
[2025-09-18 05:08] LABS: NUCLEATED RED BLOOD CELLS 0.0 % (0.0-0.19); PLATELET COUNT (AUTO) 364.0 K/uL (130-400); RED BLOOD CELL COUNT(AUTO) 3.84 MIL/uL (4.00-5.50); RED CELL DISTRIBUTION WIDTH 13.0 % (11.0-15.5); WHITE BLOOD COUNT (AUTO) 8.7 K/uL (4.8-10.8)
[2025-09-18 05:39] LABS: ASPARTATE AMINOTRANSFERASE 26.0 U/L (10-37); CREATININE 0.7 mg/dL (0.5-1.0); GLOMERULAR FILTR. RATE CALC 83.0 mL/min (>90); GLUCOSE,RANDOM 115.0 mg/dL (70-105); SODIUM SERUM 135.0 mmol/L (136-145); TOTAL PROTEIN, SERUM 6.6 g/dL (6.0-8.3); UREA NITROGEN, BLOOD 23.0 mg/dL (7-18)
[2025-09-18 08:13] VITALS: BP 99/61; PULSE 91; RESP 12; TEMP 98
--- NOTE | 2025-09-18 09:27 | NUR ---
SW contacted [facility] and as per individual who answered the phone pt is accepted by hospice. SW confirmed address for EMS ([address] [place], [place]) however daughter stated that she would prefer to product picker the pt and take her home herself.
--- NOTE | 2025-09-18 09:49 | HMCIMG ---
EXAM: CT Brain Without IV Contrast. CLINICAL HISTORY: Confusion, hallucinations, worsening of dementia. TECHNIQUE: Axial CT images of the brain were obtained without IV contrast administration. Multiplanar reconstructions were performed. The protocol utilizes one or more of the following dose reduction techniques: automated exposure control, adjustment of mA and/or kV according to patient size, and/or use of iterative reconstruction technique. CONTRAST: None. COMPARISON: None provided. FINDINGS: No acute intracranial hemorrhage, mass effect, or midline shift. The cerebral sulci and ventricles are prominent, consistent with age-related cerebral atrophy. Falx calcifications noted. Atherosclerotic calcifications present in the intracranial carotid and vertebral arteries. Basal ganglia and posterior fossa structures are unremarkable. No skull vault or base fracture. IMPRESSION: 1. No evidence of acute intracranial abnormality. 2. Age-related cerebral atrophic changes. /[place]
--- NOTE | 2025-09-18 09:53 | DS ---
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 The patient is a poor historian and history was obtained from the ER physician, chart review, and from the patient when possible. She reported lower back pain for the past three days. Prior to arrival, she had visited a freestanding ER where a lumbar X-ray was performed and she was prescribed baclofen, which she did not fill. She denied urinary changes, abdominal pain, chest pain, or shortness of breath. She lives alone with some home assistance and does not use a walker or cane. On evaluation, she was noted to have persistent lower back pain without neurological deficits. CT scan of the lumbar spine demonstrated multilevel degenerative changes with diffuse disc bulges and severe bilateral neural foramina stenosis from L1 through L5, S1, with no central canal stenosis. During her hospitalization, the patient was initially somnolent and not able to provide a reliable pain history. Her daughter reported that her pain began the previous and was excruciating but without motor, sensory, or urinary symptoms. MRI of the lumbar spine revealed a stable nondisplaced fracture of the right sacral ala and S2 sacral element, along with multilevel degenerative changes, disc herniations and bulges, ligamentum flavum thickening, and facet arthropathy resulting in varying degrees of spinal canal, lateral recess, and neural foraminal narrowing with nerve root impingement. Neurosurgery and Orthopedic teams were consulted and cleared her for physical therapy. The patient experienced worsening confusion and visual hallucinations during hospitalization, consistent with underlying dementia. She required 1:1 sitter c are. Functional status declined, and she became largely bed-bound. Labs showed hypoalbuminemia (albumin 3.2 g/dL) and a BMI of 19.8, indicating severe malnutrition and protein-calorie deficiency. Blood pressure was also managed, with home lisinopril dose increased to 40 mg daily for better control. The patient has been accepted to [facility] for home-based care under the supervision of her daughter. Given her advanced age, dementia, blindness from macular degeneration, declining functional status, and malnutrition, hospice care is appropriate to provide comfort and supportive management at home. The patient will be discharged home with her daughter, who will oversee her care. Home hospice services will provide nursing support, pain management, and assi stance with daily activities to ensure comfort and safety. Software Test Specialist(s): Patient was cleared by Neurosurgery and Orthopedic teams and recommended physical therapy Procedure(s): [facility] [address] [place], [place] [id number] IMAGING REPORT Signed PATIENT: WALT DAVILA MR#: [id number] : 1935 SEX: F AGE: 89 LOCATION: [facility] ORDER 1209 STATUS: REG ER REPORT#: [id number] SERVICE 07 REASON: back pain ORDERING PHYSICIAN: JOEL GALAVIZ MD PROCEDURE: L SPIN WO - CT LUMBAR SPINE W/O CONTRAST EXAM: CT LUMBAR SPINE WITHOUT INTRAVENOUS CONTRAST Technique: Helical computed tomography of the lumbar spine was performed with axial images and multiplanar reformations; radiation dose reduction techniques were applied consistent with [id number]-[id number]-achievable principles. Dose metrics: CTDIvol 13.30 mGy; DLP 451.70 mGy???cm. Comparison: None. Contrast: No intravenous contrast administered. Clinical Information: Back pain. Findings: Lumbar spine: Vertebral body heights are maintained without acute fracture or destructive osseous lesion; mild levoscoliosis is present; multilevel anterior osteophytes are noted; intervertebral disc spaces are reduced at multiple levels; posterior elements (facets, laminae, pedicles) are intact without malalignment; vacuum phenomenon is present at L2???3 and L3???4; diffuse disc bulges at L1???2, L2???3, L3???4, L4???5, and L5???S1 with severe bilateral neural foraminal stenosis at each level; no central canal stenosis is identified on computed tomography; multilevel facet joint arthropathy is present. Sacroiliac joints: Alignment is normal without erosions or ankylosis. Paraspinal soft tissues and retroperitoneum: Moderate aortic atherosclerotic calcifications; paraspinal muscles (psoas and erector spinae) are unremarkable. Bowel: Stool burden consistent with constipation in the imaged colon. Impression: * Multilevel degenerative changes of the lumbar spine with diffuse disc bulges and severe bilateral neural foraminal stenosis from L1???2 through L5???S1; no central canal stenosis identified on computed tomography; vacuum phenomenon at L2???3 and L3???4; multilevel facet arthropathy. Correlate with radicular symptoms; lumbar spine magnetic resonance imaging may be considered for nerve root evaluation if clinically indicated. * Mild levoscoliosis. * No acute fracture or traumatic malalignment. * Moderate aortic atherosclerotic calcifications. * Stool burden compatible with constipation in the imaged colon. /[place] DICTATED BY: MALINDA ABBOTT MD DATE: 09/13/251518 ELECTRONICALLY SIGNED BY: MALINDA ABBOTT MD DATE: 09/13/251518 [place] [address] IMAGING REPORT Signed PATIENT: WALT DAVILA MR#: [id number] : 1935 SEX: F AGE: 89 LOCATION: [facility] ORDER 25 STATUS: ADM IN REPORT#: [id number] SERVICE 152 REASON: LOWER BACK PAIN ORDERING PHYSICIAN: DELON DE LUNA MD PROCEDURE: L SPN WO - MR SPINAL CANAL, LUMBAR WO CON EXAM: MR Lumbar Spine without Intravenous Contrast. CLINICAL HISTORY: Lower back pain. TECHNIQUE: Magnetic resonance images of the lumbar spine without intravenous contrast in multiple planes. CONTRAST: Without. COMPARISON: Prior CT scan of the lumbar spine dated 09/14/2025. FINDINGS: VERTEBRAE: Redemonstrated dextroscoliosis of the lumbar spine with convexity toward the right. The lumbar lordosis is reduced, which may be due to muscle spasm. Anterior and posterior marginal osteophytes. Modic type II endplate changes at multiple levels. Schmorl's nodes are visualized at multiple levels. There is minimal retrolisthesis of L5 over S1, without spondylolysis. Bone marrow edema is present within the S2 vertebral body which is correspondingly hypointense on T1, extending to the right sacral ALA. On review of the prior CT scan images, there is an undisplaced fracture of the right sacral ALA as well as the S2 sacral element, which is re demonstrated in the current examination . No adjacent hematoma. ALIGNMENT: Redemonstrated dextroscoliosis of the lumbar spine with convexity toward the right. The lumbar lordosis is reduced, which may be due to muscle spasm. Minimal retrolisthesis of L5 over S1, without spondylolysis. SPINAL CORD: Normal signal and contour. Spinal meningeal cysts are present in the sacral spinal canal at S2, S3 levels. DISCS/DEGENERATIVE CHANGES: Facet arthropathy and ligamentum flavum thickening are present at multiple levels. T12-L1: A central, bilateral paracentral 6 mm sized disc herniation causes thecal sac indentation, narrowing of the bilateral lateral recesses, more on the left side, compounded by moderate sized left sided facet arthropathy and mild right sided facet arthropathy without traversing nerve root impingement. L1-L2: 5 mm sized central, bilateral paracentral and foraminal protrusion of the disc with bilateral ligamentum flavum thickening and facet arthropathy causing lateral recesses with narrowing, without traversing nerve root impingement. There is moderate bilateral facetal arthropathy at this level. L2-L3: 5 mm sized central, bilateral paracentral and foraminal disc herniation, compounded by ligamentum flavum thickening and facet arthropathy causing spinal canal, lateral recesses and neural foraminal narrowing with bilateral traversing L3 and exiting L2 nerve roots impingement minimally, compounded by ligamentum flavum thickening and facetal arthropathy. L3-L4: Circumferential diffuse asymmetric bulge causing spinal canal, lateral recesses and neural foraminal narrowing, severe on the left side with left traversing L4, exiting L3 nerve roots compression. L4-L5: Diffuse circumferential asymmetric bulge of the disc causing spinal canal, lateral recesses and neural foraminal narrowing with compounded by ligamentum flavum thickening and facetal arthropathy with obliteration of the right lateral recess and severe narrowing of the right neural foramen with compression upon right traversing L5, exiting L4 nerve roots. L5-S1: Mild bilateral ligamentum flavum thickening and facet arthropathy. There is right foraminal and extraforaminal disc bulge impinging upon the exiting L5 nerve roots. PARASPINAL SOFT TISSUES: Paravertebral soft tissues are unremarkable. Redemonstrated is mild hepatomegaly measuring 17.5 cm. There is presence of bilateral renal cysts, the largest in the visualized extent at the upper pole of the right kidney measuring 2.8 x 3 cm. IMPRESSION: 1. Compared with the prior CT scan of the lumbar spine dated September 14, 2025, Stable undisplaced fracture of the right sacral ala and S2 sacral element. No adjacent hematoma. 2. Dextroscoliosis of the lumbar spine with convexity toward the right and reduced lumbar lordosis, possibly due to muscle spasm. 3. Multilevel degenerative changes in the lumbar spine, including disc herniations, bulges, ligamentum flavum thickening, and facet arthropathy, resulting in varying degrees of spinal canal, lateral recess, and neural foraminal narrowing with nerve root impingement as detailed above. /[place] DICTATED BY: JOY ZABALA MD DATE: 09/14/252305 ELECTRONICALLY SIGNED BY: JOY ZABALA MD DATE: 09/14/252305 [place] [address] IMAGING REPORT Signed PATIENT: WALT DAVILA MR#: [id number] : 1935 SEX: F AGE: 89 LOCATION: [facility] ORDER 99 STATUS: ADM IN REPORT#: [id number] SERVICE 06 REASON: Confusion, hallucinations, worsening of dementia ORDERING PHYSICIAN: KATE PASTOR MD PROCEDURE: HEAD WO - CT HEAD/BRAIN W/O CONTRAST EXAM: CT Brain Without IV Contrast. CLINICAL HISTORY: Confusion, hallucinations, worsening of dementia. TECHNIQUE: Axial CT images of the brain were obtained without IV contrast administration. Multiplanar reconstructions were performed. The protocol utilizes one or more of the following dose reduction techniques: automated exposure control, adjustment of mA and/or kV according to patient size, and/or use of iterative reconstruction technique. CONTRAST: None. COMPARISON: None provided. FINDINGS: No acute intracranial hemorrhage, mass effect, or midline shift. The cerebral sulci and ventricles are prominent, consistent with age-related cerebral atrophy. Falx calcifications noted. Atherosclerotic calcifications present in the intracranial carotid and vertebral arteries. Basal ganglia and posterior fossa structures are unremarkable. No skull vault or base fracture. IMPRESSION: 1. No evidence of acute intracranial abnormality. 2. Age-related cerebral atrophic changes. 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 1:1 sitter support recommended as needed for safety and supervision. Encourage frequent repositioning to prevent pressure injuries. Monitor for changes in mental status, pain, or any signs of infection and notify hospice nurse promptly. Maintain adequate hydration and nutrition as tolerated; hospice team will assist with dietary needs. Ensure safe environment at home to prevent falls. Baclofen or pain medications to be taken as needed, under hospice guidance. Hospice nurse will visit regularly to monitor patients condition and adjust care plan. Primary care provider and specialists (Neurosurgery, Orthopedics) follow-up will be as recommended by hospice team if needed. PROCEDURES: None IMAGING: report attached to summary MICROBIOLOGY: report attached to summary HOME MEDICATIONS: see med rec NEW MEDICATIONS: See medication reconciliation EMERGENCY INSTRUCTIONS: The patient was instructed to present to the nearest Emergency department or call 911 once their symptoms will return or worsen. Home Medications: Reported Medications Dorzolamide HCl/Timolol Maleat (Dorzolamide-Timolol Eye Drops) 22.3 Mg-6.8 Mg/Ml Drops, 1 DROP OP BID, #10 ML 0 Refills 09/13/25 Latanoprost (Latanoprost) 0.005 % Drops, 1 DROP OP HS, ML 0 Refills 09/13/25 Baclofen (Baclofen) 10 Mg Tablet, 1 TAB PO TID for 30 Days, #90 TAB 0 Refills 09/13/25 Fluticasone/Umeclidin/Vilanter (Trelegy Ellipta 100-62.5-25) 100-62.5 Blst.w.dev, 1 PUFF IH DAILY for 30 Days, #1 EACH 0 Refills 09/13/25 Lisinopril (Lisinopril) 20 Mg Tablet, 1 TAB PO DAILY for 30 Days, #30 TAB 0 Refills 09/13/25 Discontinued Reported Medications Lovastatin (Lovastatin) 20 Mg Tablet, 1 TAB PO DAILY for 30 Days, #30 TAB 0 Refills 09/13/25 Omeprazole (Omeprazole) 40 Mg Capsule.dr, 1 CAP PO DAILY for 30 Days, #30 CAP 0 Refills 09/13/25 Levothyroxine Sodium (Levothyroxine Sodium) 100 Mcg Tablet, 1 TAB PO DAILY for 30 Days, #30 TAB 0 Refills 09/13/25 Time spent arranging discharge: 1-30 minutes ATTESTATION BY PHYSICIAN I have seen and examined the patient. I reviewed the documentation, medical decision making, and treatment plan as noted by the resident provider above. I agree with the findings and plan of care. Lukas Randhawa MD, LAKSHMI MD Sep 18, 2025 09:53
[2025-09-18 11:41] VITALS: BP 162/111; PULSE 101; RESP 16; TEMP 97.9
--- NOTE | 2025-09-18 15:00 | NUR ---
REPORT CALLED TO HOSPICE CARE TO MANI SANTILLAN
--- NOTE | 2025-09-18 15:50 | NUR ---
DISCHARGED HOME WITH BELONGINGS AND COPY OF DISCHARGE SUMMARY, DAUGHTER GIVEN DISCHARGE INSTRUCTIONS, VERBALIZED UNDERSTANDING.
== END 2025-09-18 15:40 | disposition hospice, home (50) | DRG 551 ==
LOC: EDH 11:41 → EDHIP 15:21 → 4CH 21:58 → 4BH 09-14 08:06
PROVIDERS: ADMIT Internal Medicine; ATTEND Internal Medicine
DX: S32.110A Nondisplaced Zone I fracture of sacrum, initial encounter for closed fracture (principal); E43 Unspecified severe protein-calorie malnutrition; F05 Delirium due to known physiological condition; F03.92 Unspecified dementia, unspecified severity, with psychotic disturbance; Z51.5 Encounter for palliative care; E88.09 Other disorders of plasma-protein metabolism, not elsewhere classified; E03.9 Hypothyroidism, unspecified; I10 Essential (primary) hypertension; I70.0 Atherosclerosis of aorta; M48.061 Spinal stenosis, lumbar region without neurogenic claudication; M47.816 Spondylosis without myelopathy or radiculopathy, lumbar region; H35.30 Unspecified macular degeneration; H54.8 Legal blindness, as defined in USA; G89.29 Other chronic pain; K59.00 Constipation, unspecified; X58.XXXA Exposure to other specified factors, initial encounter; M41.9 Scoliosis, unspecified; R62.7 Adult failure to thrive; Z74.01 Bed confinement status; Y93.89 Activity, other specified; Y92.89 Other specified places as the place of occurrence of the external cause; Y99.8 Other external cause status; Z68.20 Body mass index [BMI] 20.0-20.9, adult
CPT/HCPCS: 36415; 70450; 72131; 72148; 80048; 80053; 81003; 82040; 82140; 82306; 82607; 82728; 83036; 84134; 84439; 84443; 84481; 85025; 85027; 92610; 93005; 99285; G0378; J0360; J1630; J1650; J7030; J1308